=== PATIENT | male | born 1940 | race Caucasian/White ===

== ENCOUNTER 2025-02-25 13:29 | Outpatient (AMB) | payer MEDICARE, SELFPAY ==
--- OUTSIDE RECORDS SUMMARY | 2025-02-11 11:00 | XMS_ITS | Continuity of Care Document ---
Author Organization [facility] Address [address] [place] [address] Phone Care Team Providers Care Senior Research Analyst Name Role Phone Maynor MAY, JI, BRI, Michael Unavailable U navailable Procedures Procedure Date Duplex Scan-extrem Veins; Uni/ CT & [place] J Advance Directives Directive Yes / No Effective Date File Name No Information Encounters Encounter Description Practice Location Reason(s) For Visit Diagnoses Date Provider Providers Copied on Encounter [facility], [address], [place], [id number], [place] tel:[phone] CVR - [place] Pain in right leg 5 Maynor MAY, JI, BRI Rodriguez. [address], [place], [place], [id number] , [place]. tel:[phone] Referring Provider: Ely Kidd MD, [address], [place], [address]. tel:[phone] Family History Family Member Type Diagnosis Age At Onset No Information Payers Payer name Insurance type Covered alliance party ID Authoriza tion(s) Medicare HEATHER MONTES [id number] [facility] AARP Supplement CI [id number] 1 Social History Type Description Quantity Date [...]
--- NOTE | 2025-02-25 12:49 | MHC.OFFVISCO ---
Intake Intake Visit Reasons: Anticoagulation Metal Expediter Required: No Allergies No Known Allergies Allergy (Verified 02/25/25 13:32) Medication List - Last Reconciled 02/25/25 by Krissy Crum RN aspirin 81 mg PO DAILY atorvastatin (Lipitor) 40 mg PO DAILY ferrous sulfate 325 mg PO DAILY furosemide 40 mg PO DAILY losartan 25 mg PO DAILY metoprolol succinate ER (Toprol XL) 200 mg PO DAILY omeprazole 40 mg PO DAILY sennosides (Senokot) 8.6 mg PO DAILY spironolactone 12.5 mg PO DAILY tamsulosin 0.4 mg PO DAILY warfarin 5 mg PO DAILY Nursing Note INR: 2.4- in therapeutic range of 2-3 Medications and supplements reviewed- med list updated No changes in health, diet, medications, or supplements, Denies any signs and symptoms of bleeding or bruising or clotting. Bleeding, bruising, clotting discussed Nutritional guidance given Dose: pt states has been on 5mg x 6, with no warfarin on saturdays, has been on this dose for approx one year F/U INR: 2 weeks Patient verbalizes understanding of instructions given pt admitted to acs today, vinicio apple present for visambika gardiner is a nurse. med list provided and reviewed. educational material provided and reviewed to include s/s bleediing/clotting, compliance with testing, dietary management and importance of calling med changes to acs. pt states has 1mg warfarin tablets and just refilled. ? change in warfarin pill strength in the future. pt has been on warfarin for approx 15 years. 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 Illness/Depression: Yes (hx depression) Surgeries: adenoidectomy, defrib/st jens, forearm surg, inguinal hernia, shoulder surgery, thoracid spine surgery, tonisllectomy, thr right Anti-Coag. Education Record Teaching Recipient: Family (vinicio apple is a nurse) and Patient What is the easiest way to learn: Reading, Listening, Demonstration and Education Packet Significant other who can be involved in Teaching Process when Indicated: ambika- Metal Expediter Required: No Readiness To Learn: Good Teaching Methods: Demonstration, Discussion and Handout Response to Teaching: Reinforcement Needed Re-Education needs: Reinforce Content Education Intervention/Brief Description of Teaching 1. Able to state reason for taking Warfarin: Yes 2. Able to state Pain Management techniques: Yes 3. Able to state action of Warfarin.: Yes Able to state current dose, pill color, how and when Warfarin to be taken: Yes Able to identify signs of bleeding &/or clotting: Yes 4. Able to identify need to keep diet consistent in regard to vitamin K intake: Yes Able to state restriction on alcohol: Yes 5. Able to state need for compliance with PT/INR testing: Yes Describes rationale for carrying ID and wearing Medic Alert bracelet: Yes Patient instructed to monitor for excess bruising or signs/symptoms of clotting or bleeding: Yes 6. Able to state that there are drugs that interact with Warfin: Yes 7. Able to state the need to seek medical attention when illness/injury occur.: Yes Describes the need to avoid activities with high risk of injury: Yes 8. Able to state duration of treatment: Yes 9. Demonstrates understanding of notifying all providers of pending dental surgical, or other invasive procedures: Yes 10. Able to state Home Care instructions Questionnaires HAS-BLED Does the patient had uncontrolled Hypertension?: Yes Does the patient have renal disease?: Yes Does the patient have liver disease?: No Does the patient have a history of stroke?: No Has the patient had major bleeding or predisposition to bleeding?: Yes (stomach, ? diverticulitis) Does the patient have labile INRs?: Yes Is the patient over 65 years of age?: Yes Is the patient on medications that gives them a predisposition to bleeding?: Yes Does the patient use alcohol?: No HAS-BLED Score: 6 CHADSVASC Age: 75 or over Gender: Male Does the patient have a history of CHF?: Yes Does the patient have a history of Hypertension?: Yes Does the patient have a history of Stroke/TIA/Thromboembolism?: No Does the patient have a history of Vascular Disease (prior OR, PAD or aortic plaque)?: Yes Does the patient have a history of Diabetes?: No CHADS VACS Score: 5 Yuko Prediction Score Rsk VTE Active Cancer: No Previous VTE, excluding superficial vein thrombosis: No Reduced mobility: Yes Already known Thrombophilic Condition: No With-in last month Trauma and/or Surgery: No Elderly 70 year or older: Yes Heart and/or Respiratory Failure: Yes Acute Myocardial infarction and/or Ischemic Stroke: No Acute Infection and/or Rheumatologic Disorder: No Obesity (BMI 30 or greater): Yes Ongoing Hormonal Treatment: No Score: 6 Yuko Score less than 4; Low Risk of VTE Yuko Score 4 or greater; High Risk of VTE Coding Level of Care Code New Patient Level 2 Diagnoses Current use of anticoagulant therapy Z79.01 Results AMB INR Fingerstick AMB INR Fingerstick 2.4 Last Edit by Krissy Crum RN on 02/25/25 14:22 interface delay Assessment & Plan Assessment & Plan (1) Current use of anticoagulant therapy: Code(s): Z79.01 - salvage determiner (current) use of anticoagulants Category: Medical Medications: New polyethylene glycol 3350 (Miralax) 17 grams PO DAILY PRN furosemide 60 mg PO QAM furosemide 40 mg PO QPM acetaminophen 1,000 mg PO .q8 hours PRN
[2025-02-25 14:16] LABS: Prothrombin Time Whole Bld POC 28.5 sec (11.1-13.5); ~PT, ~INR - Anti Coag Clinic 2.4 (0.9-1.1)
--- OUTSIDE RECORDS SUMMARY | 2025-02-25 14:18 | XMS_ITS | Encounter Summary ---
Author Organization [facility] Address [address] [place] [address] Care Team Providers Care Painter Supervisor Name Role Phone Luisito Davenport MD Primary Care Provider [phone] Encounter Details Date Type Department Care Team (Late st Contact Info) Description 02/04/2025 Telephone [facility] [address] [facility] [address] [place] [id number] Mesha Lima, PERRI [address] [place] [address] Social History Tobacco Use Types Packs/Day Years Used Date Smoking Tobacco: Never Smokeless Tobacco: Never Alcohol Use Standard Drinks/Week Comments Not Currently 0 (1 standard drink = 0.6 oz pur e alcohol) Sex and Gender Information Value Date Recorded Sex Assigned at Not on file Legal Sex Male 3:28 AM EST Gender Identity Not on file Sexual Orientation Not on file documented as of this encounter Progress Notes * Mildred Stephen - 02/24/2025 9:00 AM EDT 02/23/25 I did receive the JOHN from the [facility] Office signed by Dr. HARRISON. Patient will see . There is arecall for 6 mos in the system. * Mildred Stephen - 02/04/2025 1:09 PM EDT 02/04/25 Pt saw today and is requesting to switch care to Dr. Macdonald from Dr. Kraft. Transfer of Care form will be sent to the [facility] office today to have Dr. Kraft sign. documented in this encounter Plan of Treatment Upcoming Encounters Date Type Department Care Team (Late st Contact Info) Description 02/26/2025 8:30 AM EDT Ancillary Procedure [facility] [address] [facility] [address] [place] [address] 05/06/2025 11:20 AM EDT Office Visit [facility] [address] [facility] [address] [place] [address] Mesha Lima NP [address] [place] [address] documented as of this encounter Visit Diagnoses Not on filedocumented in this encounter Care Teams Painter Supervisor Relationship Specialty Start Date End Date Luisito Davenport MD [address] [place] [address] PCP - General Internal Medicine 05/29/12 documented as of this encounter
== END 2025-02-25 14:50 | disposition home or self-care (01) ==
LOC: HO.ACS 13:29
PROVIDERS: PCP Internal Medicine; Visit Provider Internal Medicine Medical Oncology
DX: Z79.01 Long term (current) use of anticoagulants (principal)

== ENCOUNTER → 2025-02-25 13:29 | Outpatient (BNVA) | payer MEDICARE, SELFPAY | PROVIDERS: PCP Internal Medicine; Visit Provider Internal Medicine Medical Oncology | DX: I48.91 Unspecified atrial fibrillation (principal); Z79.01 Long term (current) use of anticoagulants; Z51.81 Encounter for therapeutic drug level monitoring | CPT/HCPCS: 85610; 99202 ==

== ENCOUNTER 2025-03-11 08:20 | Outpatient (AMB) | payer MEDICARE, SELFPAY ==
--- OUTSIDE RECORDS SUMMARY | 2025-02-11 11:00 | XMS_ITS | Continuity of Care Document ---
Author Organization [facility] Address [address] [place] [address] Phone Care Team Providers Care Department Coordinator Name Role Phone Maynor MAY, JI, BRI, Michael Unavailable U navailable Procedures Procedure Date Duplex Scan-extrem Veins; Uni/ CT & [place] J Advance Directives Directive Yes / No Effective Date File Name No Information Encounters Encounter Description Practice Location Reason(s) For Visit Diagnoses Date Provider Providers Copied on Encounter [facility], [address], [place], [id number], [place] tel:[phone] CVR - [place] Pain in right leg 5 Maynor MAY, JI, BRI Rodriguez. [address], [address], [place], [place], [id number] , [place]. tel:[phone] Referring Provider: Ely Kidd MD, [address], [place], [address]. tel:[phone] Family History Family Member Type Diagnosis Age At Onset No Information Payers Payer name Insurance type Covered alliance party ID Authoriza tion(s) Medicare HEATHER MONTES [id number] [facility] AARP Supplement [place] [id number] 1 Social History Type Description Quantity Date [...]
--- OUTSIDE RECORDS SUMMARY | 2025-03-11 08:31 | XMS_ITS | Encounter Summary ---
Author Organization [facility] Address [address] [place] [address] Care Team Providers Care Glass Etcher Helper Name Role Phone Luisito Davenport MD Primary Care Provider [phone] Encounter Details Date Type Department Care Team (Late st Contact Info) Description 02/04/2025 Telephone [facility] [address] [facility] [address] [place] [id number] Mesha Lima, PERRI [address] [place] [address] Social History Tobacco Use Types Packs/Day Years [...] Care form will be sent to the [facility] office today to have Dr. Kraft sign. documented in this encounter Plan of Treatment Upcoming Encounters Date Type Department Care Team (Late st Contact Info) Description 04/30/2025 8:00 AM EDT Ancillary Procedure [facility] - [facility] [address] [address] [place] [address] 05/06/2025 11:20 AM EDT [facility] [address] [facility] [address] [place] [address] Mesha Lima NP [address] [place] [address] documented as of this encounter Visit Diagnoses Not on filedocumented in this encounter Care Teams Glass Etcher Helper Relationship Specialty Start Date End Date Luisito Davenport MD [address] [place] [address] PCP - General Internal Medicine 05/29/12 documented as of this encounter
[2025-03-11 08:52] LABS: Prothrombin Time Whole Bld POC 36.1 sec (11.1-13.5); ~PT, ~INR - Anti Coag Clinic 3.0 (0.9-1.1)
--- NOTE | 2025-03-11 08:58 | MHC.OFFVISCO ---
Intake Intake Visit Reasons: Anticoagulation Allergies No Known Allergies Allergy (Verified 02/25/25 13:32) Nursing Note NO CP,SOB,DIET/MED CHANGES,FALLS OR SX OF BLEEDING. CONTINUE PRESENT DOSE AND FOLLOW-UP IN 3 WEEKS GOOD UNDERSTANDING OF DOSING INSTR. Anti-Coag Initial Assessment Social Hx Patient Tobacco Use Status: Former Tobacco user Tobacco use type: Cigarette and Cigar Alcohol intake frequency: does not drink Cardiovascular Hx: HTN, CHF, Arrhythmias (afib, ), Cardiomyopathy and Other (ashd, aneurysm- thoracic, hld, LBBB) Musculoskeletal Hx: Arthritis (knees, thr right) and Other (sciatica) Blood Disorder Hx: Anemia and Hyperlipidemia GI Hx: Diverticulosis and Other (gerd, colon polyps, pancreatic mass) Hx: Kidney Disease (ckd 3, ) and Prostate (prostatitis) Neurological Hx: Aneurysm (thoracic) Cancer HX: No Psych. Illness/Depression: Yes (hx depression) Coding Level of Care Code Est Patient Level 1 Diagnoses Current use of anticoagulant therapy Z79.01 Assessment & Plan Assessment & Plan (1) Current use of anticoagulant therapy: Code(s): Z79.01 - penitentiary (current) use of anticoagulants Category: Medical
== END 2025-03-11 09:02 | disposition home or self-care (01) ==
LOC: HO.ACS 08:20
PROVIDERS: PCP Internal Medicine; Visit Provider Internal Medicine Medical Oncology
DX: Z79.01 Long term (current) use of anticoagulants (principal)

== ENCOUNTER → 2025-03-11 08:20 | Outpatient (BNVA) | payer MEDICARE, SELFPAY | PROVIDERS: PCP Internal Medicine; Visit Provider Internal Medicine Medical Oncology | DX: I48.91 Unspecified atrial fibrillation (principal); Z79.01 Long term (current) use of anticoagulants; Z51.81 Encounter for therapeutic drug level monitoring | CPT/HCPCS: 85610; 99211 ==

== ENCOUNTER 2025-04-01 08:15 | Outpatient (AMB) | payer MEDICARE, SELFPAY ==
--- OUTSIDE RECORDS SUMMARY | 2025-04-01 08:19 | XMS_ITS | Clinical Summary ---
Author Organization [address] [place] [address] Address [address] [place] [address] Phone Care Team Providers Care Equipment Cleaner Name Role Phone Luisito Davenport MD Primary Care Provider [phone] Allergies No known active allergies Medications aspirin 81 mg EC tablet Take 81 mg by mouth daily. Active metoprolol succinate (TOPROL-XL) 200 mg 24 hr tablet TAKE 1 TABLET EVERY DAY 4 Active omeprazole (PriLOSEC) [address] capsule Take 1 Capsule by mouth daily. Active tamsulosin (FLOMAX) 0.4 mg 24 hr capsule Take 0.4 mg by mouth daily. Take 30 mins after same meal every day. Active warfarin (COUMADIN) 1 mg tablet Managed by Dr Davenport. Active spironolactone (ALDACTONE) 25 mg tablet TAKE 1/2 TABLET EVERY DAY 45 tablet 3 5 Active furosemide (LASIX) 40 mg tablet TAKE 2 TABLETS EVERY MORNING AND TAKE 1 TABLET IN AFTERNOON 270 tablet 3 5 Active Additional Information Patient not taking.Informant: Self, Reported on 02/04/2025 losartan (COZAAR) 50 mg tablet Take 0.5 tablets (25 mg total) by mouth 1 (one) time each day. 90 tablet 1 5 Active furosemide (LASIX) 40 mg tablet Take by mouth. Take 3 tablets in the morning, take 2 tablets in the evening Active docusate sodium (COLACE) 100 mg capsule Take 1 capsule (100 mg total) by mouth 1 (one) time each day. Active ferrous sulfate 325 mg (65 mg iron) EC tablet Take 1 tablet (325 mg total) by mouth 3 (three) times a day with meals. Do not crush, chew, or split. Active ferrous sulfate 325 mg (65 mg elemental iron) tablet Take 1 tablet (325 mg total) by mouth 1 (one) time each day. Active senna (SENOKOT) 8.6 mg tablet Take 1 tablet (8.6 mg total) by mouth if needed for constipation. Active polyethylene glycol (MIRALAX) 17 gram packet Take 17 g by mouth if needed for constipation. Active atorvastatin (LIPITOR) 40 mg tablet TAKE 1 TABLET EVERY DAY 90 tablet 3 5 Active Farxiga 10 mg tablet Take 1 tablet (10 mg total) by mouth 1 (one) time each day. 90 tablet 3 5 Active Active Problems Problem Noted Date Diagnosed Date Nonischemic cardiomyopathy ([facility] V24, [facility] V28) 01/09/2025 CAD (coronary artery disease) 11/08/2022 Overview (01/15/2025): - Mild nonobstructive CAD on cath 2007 -Nuclear stress test 08/2019 without evidence of ischemia or infarct, LVEF 50% Assessment & Plan (02/05/2025 7:23 AM EDT): The patient does not have anginal sounding discomfort. Continue his medical therapy with aspirin, beta-anderson, ARB and statin. Assessment & Plan (01/15/2025 12:04 PM EDT): The patient has no anginal sounding discomfort. Continue medical therapy with aspirin, beta-anderson, statin. Follow his GI bleeding with ongoing antiplatelet use HLD (hyperlipidemia) 11/08/2022 Assessment & Plan (02/05/2025 7:26 AM EDT): Well-controlled lipid profile on current dose statin. Continue Atrial fibrillation ([facility] V24, [facility] V28) 1 Overview (01/15/2025): - Unsuccessful cardioversion -Anticoagulated with warfarin -Heart rate supported by BiV pacemaker Assessment & Plan (02/05/2025 7:22 AM EDT): The patient's heart rate remains supported by his biventricular device. He remains anticoagulated with warfarin per protocol. He has not had any bleeding issues. Continue his beta-anderson and anticoagulation. Continue in office and remote surveillance of his device as per protocol. Assessment & Plan (01/15/2025 12:04 PM EDT): The patient's heart rate is well-controlled on his current dose beta-anderson and supported by his BiV pacemaker. He does not have any tachycardia noted on his remote device interrogations. He does have GI bleeding and a recently diagnosed stage II GI carcinoma. His anemia will need to be closely followed. Consideration can be given by the patient's primary team for Watchman evaluation. Aortic aneurysm, thoracic ([facility] V24) 09/13/19 Overview (01/15/2025): Followed by Dr. Chavez Assessment & Plan (02/05/2025 7:22 AM EDT): Continue periodic surveillance as per cardiac surgery. However, this may never be a problem in his lifetime. 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) ([facility] V24, [facility] V28) 09/13/2020 Overview (01/15/2025): - Recovered LVEF status post [employer]LE [employer]SULTANT-D -Most recent echocardiogram 12/2022 showing normal LV size, moderate concentric LVH, basal inferior and basal inferior castillo hypokinetic, ICD wire in the RA, LVEF 45-50% visually, 48% using modified Cannon equation, indeterminant diastolic function, normal RV size, root global RV systolic function, moderate AI, mild TR, mild pulmonary hypertension, dilation of the aortic root at sinus of Valsalva 4.6 centimeters, ascending aorta 4.8 cm, transverse aorta 3.5 cm - Historically, SGLT2 has been cost prohibitive Assessment & Plan (02/05/2025 7:26 AM EDT): The patient's lower extremity edema has dramatically improved with intensification of his diuretic therapy, and he has lost 10 pounds! The patient and his daughter are quite pleased. He feels much better. His anemia is stable, and his renal function improved with diuresis suggesting cardiorenal syndrome. 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 His daughter investigated the cost of both Jardiance and Farxiga. He appears as though Farxiga is preferential through his insurance. As such, will prescribe Farxiga 10 mg daily. I did ask his daughter to confirm the zambrano as it does look high on my end as I tried to write the prescription. If SGLT2's are cost prohibitive, he will just remain on his higher dose diuretic as it seems to be working well for him. 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 Assessment & Plan (01/15/2025 12:09 PM EDT): The patient has evidence of ongoing volume overload. He has lower extremity edema bilaterally, adventitious lung sounds, and weight gain. Interestingly, his edema is more notable following a mechanical fall. This does not make much logical sense to the patient or his daughter either. He does have dietary indiscretion of sodium. This is a more likely etiology for his current heart failure exacerbation. He is also more likely to retain volume in the setting of significant anemia due to the hemodynamic changes that occur with anemia. We will start with updating his blood work. Since the time of our office visit, it returns with H&H 8.7/29.6, and creatinine of 1.47 and a BNP of 253. Likely, the patient has a degree of cardiorenal syndrome. Will increase his diuretic again to 120 mg in the morning and 80 mg in the afternoon as was previously successful during a bolus by his PCP team. Will update his BMP in about a week's time. If his renal function is stable and he is feeling well, can continue higher dose diuretic. Alternatively, Jardiance is now generic and may be more affordable. This would need to be determined by the patient and his daughter in conjunction with the review of his insurance annual co-pays. 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 Hypertension 09/13/2020 Assessment & Plan (02/05/2025 7:26 AM EDT): Patient's blood pressure is somewhat soft but asymptomatic. Hopefully, we will be able to transition his loop diuretic to SGLT2 as above. But for now, continue his current treatment plan Assessment & Plan (01/15/2025 12:09 PM EDT): Blood pressure robust in office today. Follow with diuresis. Continue otherwise his ARB, beta-anderson and MRA. As above, consideration can be given for SGLT2 if it is not cost prohibitive any longer. Pancreatic lesion 09/27/2012 Encounters Date Type Department Care Team Description 03/13/2025 1:20 PM EDT Ancillary Procedure [facility] [address] [place] [address] 02/04/2025 11:00 AM EDT Office Visit [facility] [address] [place] [address] Mesha Lima NP Chronic heart failure with preserved ejection fraction (HFpEF) (CMS/HCC V24, CMS/HCC V28) (Primary Dx); Aneurysm of ascending aorta without rupture (CMS/HCC V24); Longstanding persistent atrial fibrillation (CMS/HCC V24, CMS/HCC V28); Coronary artery disease involving coyote valley coronary artery of coyote valley heart without angina pectoris; Primary hypertension; Pure hypercholesterolemia 02/04/2025 Telephone [facility] [address] [place] [address] Mesha Lima NP Authorization; Medication 02/04/2025 Telephone [facility] [address] [place] [address] Mesha Lima NP 02/03/2025 12:30 PM EDT Ancillary Procedure [facility] [address] [place] [address] 01/27/2025 Telephone [facility] [address] [place] [address] Mesha Lima NP Lab Results 01/14/2025 11:20 AM EDT Office Visit [facility] [address] [place] [address] Mesha Lima NP Atrial fibrillation, unspecified type (CMS/HCC V24, CMS/HCC V28) (Primary Dx); Nonischemic cardiomyopathy (CMS/HCC V24, CMS/HCC V28); Aneurysm of ascending aorta without rupture (CMS/HCC V24); Coronary artery disease involving coyote valley coronary artery of coyote valley heart without angina pectoris; Chronic heart failure with preserved ejection fraction (HFpEF) (CMS/HCC V24, CMS/HCC V28); Primary hypertension; Pure hypercholesterolemia 01/09/2025 Telephone [facility] [address] [place] [address] Mar Stephen MA 01/09/[address] [place] [id number] Gary Le MD Leg Swelling 12/30/2024 2:30 PM EDT Ancillary Procedure [facility] [address] [place] [address] from Last 3 Months Surgical History Surgery Date Site/Laterality Comments COLONOSCOPY 04/05/2022 PROCEDURE: HISTORICAL COLONOSCOPY; COMMENT: 06/20/17 OTHER SURGICAL HISTORY PROCEDURE: HISTORY OTHER; COMMENT: STOMACH-INTESTINE SCOPE OTHER SURGICAL HISTORY 11/07/2012 PROCEDURE: HISTORY OTHER; COMMENT: ULTRASOUND GUIDED BIOPSY OTHER SURGICAL HISTORY PROCEDURE: HISTORY OTHER; COMMENT: Cardiac defibrillator OTHER SURGICAL HISTORY PROCEDURE: HISTORY OTHER; COMMENT: compartment syndrome Medical History Medical History Date Comments Arthritis DX:Arthritis Hemorrhoids DX:Hemorrhoids Class 2 obesity DX:Class 2 obesi ty Abdominal pain 08/18/2022 DX:Abdominal silvana n BPH (benign prostatic hyperplasia) DX:BPH (benign prostatic hyperplasia) CKD (chronic kidney disease) DX: CKD (chronic kidney disease) Pancreatic cyst DX:Pancreatic cy st Edema BLE Hypertension Chronic anemia Acute kidney injury (CMS/HCC V24) Family History Medical History Relation Name Comments Heart attack Brother HTN Mother Stroke Mother Relation Name Status Comments Brother Mother Social History Tobacco Use Types Packs/Day Years Used Date Smoking Tobacco: Never Smokeless Tobacco: Never Tobacco Cessation:Counseling Given: Not Answered Alcohol Use Standard Drinks/Week Comments Not Currently 0 (1 standard drink = 0.6 oz pur e alcohol) Sex and Gender Information Value Date Recorded Sex Assigned at Not on file Legal Sex Male 3:28 AM EST Gender Identity Not on file Sexual Orientation Not on file Obstetrics History Last Filed Vital Signs Vital Sign Reading Time Taken Comments Blood Pressure 100/56 02/04/2025 10:49 AM EDT Pulse 67 02/04/2025 10:49 AM EDT Temperature - - Respiratory Rate - - Oxygen Saturation 97% 02/04/2025 10:49 AM EDT Inhaled Oxygen Concentration - - Weight 98 kg (216 lb) 02/04/2025 10:49 AM EDT Height 175.3 cm (5' 9 ) 02/04/2025 10:49 AM EDT Body Mass Index 31.9 02/04/2025 10:49 AM EDT Plan of Treatment Upcoming Encounters Date Type Department Care Team (Late st Contact Info) Description 04/27/2025 8:00 AM EDT Ancillary Procedure [facility] [address] [place] [address] 05/06/2025 11:20 AM EDT Office Visit [facility] [address] [place] [address] Mesha Lima NP [address] [place] [address] Health Maintenance Due Date Last Done Comments Zoster Vaccines (1 of 2) 1959 RSV Immunization Adult Patients (1 - 1-dose 75+ series) 2014 Cholesterol Screening (Lipid Panel) 07/29/2022 Falls Risk Assessment 07/29/2022 Medicare Annual Wellness Visit 07/29/2022 Social Influencers of Health Screening 07/29/2022 COVID-19 Vaccine (4 - 2023-2 5 season) 2024 11/10/2021, 12/22/2020, 11/24/2020 Depression Screening 08/20/2024 Influenza Vaccine (#1) 2025 Hypertension/CHF/CAD Annual BMP Blood Test 01/23/2026 01/23/2025, 01/14/2025, 08/22/2024 DTaP,Tdap,and Td Vaccines (2 - Td or Tdap) 04/17/2029 04/17/2019 Pneumococcal Vaccine: 50+ Years Completed 07/03/2018, 11/08/2015, 01/17/2012 HIB Vaccines Aged Out No longer eligi ble based on patient's age to complete this topic HPV Vaccines Aged Out No longer eligi ble based on patient's age to complete this topic Hepatitis A Vaccines Aged Out No long er eligible based on patient's age to complete this topic Hepatitis B Vaccines Aged Out No long er eligible based on patient's age to complete this topic IPV Vaccines Aged Out No longer eligi ble based on patient's age to complete this topic MMR Vaccines Aged Out No longer eligi ble based on patient's age to complete this topic Meningococcal ACWY Vaccine Aged Out N o longer eligible based on patient's age to complete this topic Meningococcal B Vaccine Aged Out No l onger eligible based on patient's age to complete this topic RSV Immunization Patients Under 20 months Aged Out No longer eligible b ased on patient's age to complete this topic Varicella Vaccines Aged Out No longer eligible based on patient's age to complete this topic Medical Devices Implanted Type Area Element Winding Machine Tender Device Identifier Shelf Expiration Date Model / Serial / Lot [id number] Quench AssMonogram(Tm) [id number] Implanted:11/19 (Quantity not on file) Cardiac ORACLE WMS CONSULTANT-D ICD RANGEL [employer]- [employer] [id number] [employer] ASSPocket Gems(TM) / [id number] / Procedures Procedure Name Priority Date/Time Associated Diagnosis Comments CARDIAC DEVICE CHECK- REMOTE- MURJ Routine 03/13/2025 1:19 PM EDT CARDIAC DEVICE CHECK- REMOTE- MURJ Routine 02/03/2025 12:26 PM EDT BASIC METABOLIC PANEL Routine 01/23/2025 7:16 AM EDT Chronic heart failure with preserved ejection fraction (HFpEF) (CMS/HCC V24, CMS/HCC V28) ECG 12-LEAD Routine 01/15/2025 12:11 PM EDT Atrial fibrillation, unspecified type (CMS/HCC V24, CMS/HCC V28) B-TYPE NATRIURETIC PEPTIDE Routine 01/14/2025 12:57 PM EDT Nonischemic cardiomyopathy (CMS/HCC V24, CMS/HCC V28) COMPLETE BLOOD COUNT Routine 01/14/2025 12:57 PM EDT Nonischemic cardiomyopathy (CMS/HCC V24, CMS/HCC V28) BASIC METABOLIC PANEL Routine 01/14/2025 12:57 PM EDT Nonischemic cardiomyopathy (CMS/HCC V24, CMS/HCC V28) CARDIAC DEVICE CHECK- REMOTE- MURJ Routine 12/30/2024 2:25 PM EDT from Last 3 Months Results * Cardiac device check - Remote- MURJ (03/13/2025 1:19 PM EDT) Only the most recent of3 resultswithin the time period is included. Date Time Interrogation Session [id number] CV DEVICE CHECK Type Interrogation Session Remote Scheduled CV DEVICE CHECK Implantable Pulse Generator Element Winding Machine Tender [employer] CV DEVICE CHECK Implantable Pulse Generator Type ORACLE WMS CONSULTANT-D CV DEVICE CHECK Implantable Pulse Generator Model [id number] [employer]() CV DEVICE CHECK Implantable Pulse Generator Serial Number [id number] CV DEVICE CHECK Implantable Pulse Generator Implant Date 20221215 CV DEVICE CHECK Battery Remaining Percentage 61.00 CV DEVICE CHECK Battery Remaining Longevity 48.0 CV DEVICE CHECK Battery Voltage 2.960 CV D EVICE CHECK Battery RESIDENTIAL PROPERTY TAX APPRAISER Trigger 2.590 CV DEVICE CHECK Battery Status Middle of Service CV DEVICE CHECK Capacitor Charge Time 8.300 CV DEVICE CHECK ORACLE WMS CONSULTANT Statistic ORACLE WMS CONSULTANT Percent Paced 99.00 CV DEVICE CHECK Atrial Tachy Statistic AT/AF Dawson Percent 1.00 CV DEVICE CHECK Lead Channel Sensing Intrinsic Amplitude 0.600 CV DEVICE CHECK Lead Channel Setting Sensing Sensitivity 0.30 CV DEVICE CHECK Lead Channel Impedance Value 350 CV DEVICE CHECK Lead Channel Sensing Intrinsic Amplitude 11.800 CV DEVICE CHECK Lead Channel Setting Sensing Sensitivity 0.50 CV DEVICE CHECK Lead Channel Impedance Value 380 CV DEVICE CHECK Lead Channel Pacing Threshold Amplitude 0.875 CV DEVICE CHECK Lead Channel Pacing Threshold Pulse Width 0.5 CV DEVICE CHECK Lead Channel RV Pacing Threshold Date 2025-02-27 CV DEVICE CHECK Lead Channel Setting Pacing Amplitude 2.000 CV DEVICE CHECK Lead Channel Setting Pacing Pulse Width 0.5 CV DEVICE CHECK Lead Channel Impedance Value 340 CV DEVICE CHECK Lead Channel Setting Pacing Amplitude 1.750 CV DEVICE CHECK Lead Channel Setting Pacing Pulse Width 1.0 CV DEVICE CHECK Bryce Setting Mode (NBG Code) VVIR CV DEVICE CHECK Ventricular chambers paced during ORACLE WMS CONSULTANT pacing. BiV CV DEVICE CHECK Bryce Setting Lower Rate Limit 70 CV DEVICE CHECK Bryce Setting AT Mode Switch Rate 180 CV DEVICE CHECK Bryce Setting Maximum Sensor Rate 110 CV DEVICE CHECK ORACLE WMS CONSULTANT LV-RV Delay 45 CV D EVICE CHECK Therapy Statistic Recent Shocks Delivered 0 CV DEVICE CHECK Therapy Statistic Recent Shocks Aborted 0 CV DEVICE CHECK Therapy Statistic Recent ATP Delivered 0 CV DEVICE CHECK Shock Measured Impedance 44 CV DEVICE CHECK Zone Setting Type Category VT CV DEVICE CHECK Rate 160 CV DEVICE CHECK Zone Setting Status On CV DEVICE CHECK Zone ID 1 CV DEVICE CHECK Zone Setting Type Category VT CV DEVICE CHECK Zone Setting Status Inactive CV DEVICE CHECK Zone ID 2 CV DEVICE CHECK Zone Setting Type Category VF CV DEVICE CHECK Rate 200 CV DEVICE CHECK Therapies 36.0J,40.0J,40.0J x 4 CV DEVICE CHECK Zone Setting Status On CV DEVICE CHECK Zone ID 3 CV DEVICE CHECK Date of Service 2025-04-28 CV DEVICE CHECK Anatomical Region Laterality Modality Device Interroga tion 02/27/2025 2:00 AM EDT Impressions 03/13/2025 1:04 PM EDT Heart Failure Diagnostic: Stable * Heart failure diagnostics assessed through the device * Status: Stable * No overt HF present Narrative Procedure Note Jair Craig MD - 03/13/2025 IMPRESSION: Heart Failure Diagnostic: Stable * Heart failure diagnostics assessed through the device * Status: Stable * No overt HF present us Jair Craig MD CV IMPLANTABLE CARDIAC DEVICE PROCEDURES Final Result * (ABNORMAL) Basic metabolic panel (01/23/2025 7:16 AM EDT) Only the most recent of2 resultswithin the time period is included. Pathologist [facility] Glucose 91 70 - 99 mg/dL [facility] Blood Urea Nitrogen (BUN) 25 8 - 27 mg/dL [facility] Creatinine 1.24 0.76 - 1.27 mg/dL [facility] 1 eGFR 57(L) >59 mL/min/1.7 3 [facility] 1 BUN/Creatinine Ratio 20 10 - 24 [facility] 1 Sodium 145(H) 134 - 144 mmol/L [facility] 1 Potassium 4.2 3.5 - 5.2 mmol/L [facility] 1 Chloride 102 96 - 106 mmol/L [facility] 1 Carbon Dioxide 26 20 - 29 mmol/L [facility] 1 Calcium 9.0 8.6 - 10.2 mg/dL [facility] 1 Blood Venous blood specimen / Unknown 01/23/2025 7:16 AM EDT 01/23/2025 Narrative [facility] 1 - 01/23/2025 11:06 PM EDT Performed at: 01 - [facility] [id number] Roller Inspector: Joyce Cohen MD, Phone: [phone] us Mesha Lima NP LAB BLOOD ORDERABLES Final Resu lt [facility] 1 * ECG 12 lead (01/15/2025 12:11 PM EDT) Pathologist [facility] Ventricular Rate ECG 70 BPM GEMUSE Atrial Rate 70 BPM GEMUSE QRS Duration 206 ms GEMUSE Q-T Interval 490 ms GEMUSE QTc 529 ms GEMUSE R [place] -52 degrees GEMUSE T [place] 50 degrees GEMUSE ECG Interpretation Ventricular-paced rhythm afib underlying, anticoagulated Confirmed by Venkat DONG YUFENG ([id number]) on 01/15/2025 2:31:50 PM GEMUSE 01/14/2025 11:5 5 AM EDT 01/15/2025 2:31 PM EDT Mesha Lima NP ECG ORDERABLES Edited Result - Final GEMUSE * (ABNORMAL) Complete blood count (01/14/2025 12:57 PM EDT) WBC 7.9 3.4 - 10.8 x10E3/uL [facility] RBC 3.19(L) 4.14 - 5.80 x10E6/uL [facility] 1 Hemoglobin 8.7(L) 13.0 - 17.7 g/dL [facility] 1 Hematocrit 29.6(L) 37.5 - 51.0 % [facility] 1 MCV 93 79 - 97 fL [facility] 1 MCH 27.3 26.6 - 33.0 pg [facility] 1 MCHC 29.4(L) 31.5 - 35.7 g/dL [facility] 1 RDW 15.9(H) 11.6 - 15.4 % [facility] 1 Platelets 371 150 - 450 x10E3/uL [facility] 1 Blood Venous blood specimen / Unknown 01/14/2025 12:57 PM EDT 01/14/2025 Narrative [facility] 1 - 01/14/2025 10:06 PM EDT Performed at: 01 - [facility] [address] [id number] Roller Inspector: Joyce Cohen MD, Phone: [phone] Mesha Lima NP LAB BLOOD ORDERABLES Final Resu lt [facility] * (ABNORMAL) B-type natriuretic peptide (01/14/2025 12:57 PM EDT) B-Type Natriuretic Peptide 253.6(H) 0.0 - 100.0 pg/mL [facility] Comment:[employer] ADVIA [facility] [employer] methodology Blood Venous blood specimen / Unknown 01/14/2025 12:57 PM EDT 01/14/2025 Narrative [facility] 1 - 01/15/2025 8:07 AM EDT Performed at: 01 - [facility] [address] [id number] Roller Inspector: Joyce Cohen MD, Phone: [phone] us Mesha Clarence RAYO LAB BLOOD ORDERABLES Final Resu lt [facility] 1 from Last 3 Months Insurance MEDICARE [facility] Advance Directives Documents on File Type Date Recorded 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
[2025-04-01 08:41] LABS: Prothrombin Time Whole Bld POC 44.0 sec (11.1-13.5); ~PT, ~INR - Anti Coag Clinic 3.7 (0.9-1.1)
--- NOTE | 2025-04-01 08:52 | MHC.OFFVISCO ---
Intake Intake Visit Reasons: Anticoagulation Allergies No Known Allergies Allergy (Verified 04/01/25 08:36) Medication List - Last Reconciled 04/01/25 by Jess Chavarria RN acetaminophen 1,000 mg PO .q8 hours PRN aspirin 81 mg PO DAILY atorvastatin (Lipitor) 40 mg PO DAILY ferrous sulfate 325 mg PO DAILY furosemide 60 mg PO QAM furosemide 40 mg PO QPM losartan 25 mg PO DAILY metoprolol succinate ER (Toprol XL) 200 mg PO DAILY omeprazole 40 mg PO DAILY polyethylene glycol 3350 (Miralax) 17 grams PO DAILY PRN sennosides (Senokot) 8.6 mg PO DAILY spironolactone 12.5 mg PO DAILY tamsulosin 0.4 mg PO DAILY warfarin 5 mg See Protocol PO DAILY Nursing Note PT. HAS HAD FEWER GREENS,AND HAS NOT TAKING ENOUGH PO FLUIDS. HOLD WARFARIN TODAY THEN RESUME USUAL DOSING AND FOLLOW-UP IN 3 WEEKS. GOOD UNDERSTANDING OF DOSING INSTR. Anti-Coag Initial Assessment Social Hx Patient Tobacco Use Status: Former Tobacco user Tobacco use type: Cigarette and Cigar Alcohol intake frequency: does not drink Cardiovascular Hx: HTN, CHF, Arrhythmias (afib, ), Cardiomyopathy and Other (ashd, aneurysm- thoracic, hld, LBBB) Musculoskeletal Hx: Arthritis (knees, thr right) and Other (sciatica) Blood Disorder Hx: Anemia and Hyperlipidemia GI Hx: Diverticulosis and Other (gerd, colon polyps, pancreatic mass) Hx: Kidney Disease (ckd 3, ) and Prostate (prostatitis) Neurological Hx: Aneurysm (thoracic) Cancer HX: No Psych. Illness/Depression: Yes (hx depression) Coding Level of Care Code Est Patient Level 1 Diagnoses Current use of anticoagulant therapy Z79.01 Assessment & Plan Assessment & Plan (1) Current use of anticoagulant therapy: Code(s): Z79.01 - superintendent container terminal (current) use of anticoagulants Category: Medical
== END 2025-04-01 08:55 | disposition home or self-care (01) ==
LOC: HO.ACS 08:15
PROVIDERS: PCP Internal Medicine; Visit Provider Internal Medicine Medical Oncology
DX: Z79.01 Long term (current) use of anticoagulants (principal)

== ENCOUNTER → 2025-04-01 08:15 | Outpatient (BNVA) | payer MEDICARE, SELFPAY | PROVIDERS: PCP Internal Medicine; Visit Provider Internal Medicine Medical Oncology | DX: Z51.81 Encounter for therapeutic drug level monitoring (principal); Z79.01 Long term (current) use of anticoagulants | CPT/HCPCS: 85610; 99211 ==

== ENCOUNTER 2025-04-22 08:02 | Outpatient (REF) | payer MEDICARE, SELFPAY ==
[2025-04-22 09:01] LABS: Hematocrit 29.7 % (42.0-52.0); Hemoglobin 9.2 g/dl (14.0-18.0); Mean Corpuscular HGB Conc 31.0 g/dl (31.0-36.0); Mean Corpuscular Hemoglobin 28.3 pg (27.0-33.0); Mean Corpuscular Volume 91.4 fL (80.0-98.0); NRBC Abs Auto 0.000 X10*3/uL (0.0-0.012); NRBC Pct Auto 0.0 /100WBC (0.0-0.2); Platelet Count 265 X10*3/uL (160-400); Red Blood Count 3.25 X10*6/uL (4.60-5.80); White Blood Count 6.7 X10*3/uL (4.8-10.8)
[2025-04-22 09:13] LABS: Prothrombin Time 65.1 SEC (10.9-12.4)
[2025-04-22 09:15] LABS: INTERNATIONAL NORM RATIO 5.7 (0.9-1.1)
== END 2025-04-22 08:03 | disposition home or self-care (01) ==
LOC: HO.LAB 08:02
PROVIDERS: PCP Internal Medicine; Visit Provider Internal Medicine Medical Oncology
DX: Z51.81 Encounter for therapeutic drug level monitoring (principal); Z79.01 Long term (current) use of anticoagulants
CPT/HCPCS: 36415; 85027; 85610; 99211; 99212

== ENCOUNTER 2025-04-22 08:02 | Outpatient (AMB) | payer MEDICARE, SELFPAY ==
--- OUTSIDE RECORDS SUMMARY | 2025-02-11 11:00 | XMS_ITS | Continuity of Care Document ---
Author Organization [facility] Address [address] [place] [address] Phone Care Team Providers Care Operating Engineer Apprentice Name Role Phone Maynor MAY, JI, BRI, Michael Unavailable U navailable Procedures Procedure Date Duplex Scan-extrem Veins; Uni/ CT & [place] J Advance Directives Directive Yes / No Effective Date File Name No Information Encounters Encounter Description Practice Location Reason(s) For Visit Diagnoses Date Provider Providers Copied on Encounter [facility], [address], [place], [id number], [place] tel:[phone] CVR - [place] - [place] Pain in right leg 5 Maynor MAY, JI, BRI Rodriguez. [address], [address], [place], [place], [id number] , [place]. tel:[phone] Referring Provider: Ely Kidd MD, [address], [place], [address]. tel:[phone] Family History Family Member Type Diagnosis Age At Onset No Information Payers Payer name Insurance type Covered green party ID Authoriza tion(s) Medicare HEATHER MONTES [id number] [facility] AARP Supplement [place] [id number] 1 Social History Type Description Quantity Date [...]
--- OUTSIDE RECORDS SUMMARY | 2025-04-22 08:15 | XMS_ITS | Clinical Summary ---
Author Organization [address] [place] [address] Address [address] [place] [address] Phone Care Team Providers Care Manager Installation Name Role Phone Luisito Davenport MD Primary Care Provider [phone] [phone] Allergies No known active allergies Medications aspirin [...] Problem Noted Date Diagnosed Date Nonischemic cardiomyopathy ([facility] V24, [facility] V28) 01/09/2025 CAD (coronary artery disease) 11/08/2022 [...] on current dose statin. Continue Atrial fibrillation ([facility] V24, [facility] V28) 1 Overview (01/15/2025): - Unsuccessful cardioversion [...] team for Watchman evaluation. Aortic aneurysm, thoracic ([facility] V24) 09/13/19 Overview (01/15/2025): Followed by Dr. Chavez Assessment & Plan (02/05/2025 7:22 AM EDT): Continue periodic surveillance as per cardiac surgery. However, this may never be a problem in his lifetime. 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) ([facility] V24, [facility] V28) 09/13/2020 Overview (01/15/2025): - Recovered LVEF status post COTTON BREEDER-D -Most recent echocardiogram 12/2022 showing normal LV [...] Encounters Date Type Department Care Team Description 04/01/2025 10:30 PM EDT Ancillary Procedure [facility] [address] [place] [address] 03/13/2025 1:20 PM EDT Ancillary Procedure [facility] [address] [place] [address] 02/04/2025 11:00 AM EDT Office Visit [facility] - [address] [place] [address] Mesha Lima NP Chronic heart failure with preserved ejection fraction (HFpEF) (CMS/HCC V24, CMS/HCC V28) (Primary Dx); Aneurysm of ascending aorta without rupture (CMS/HCC V24); Longstanding persistent atrial fibrillation (CMS/HCC V24, CMS/HCC V28); Coronary artery disease involving [place]-biloxi coronary artery of [place] heart without angina pectoris; Primary hypertension; Pure hypercholesterolemia 02/04/2025 Telephone [facility] - [address] [place] [address] Mesha Lima NP 02/04/2025 Telephone [facility] [address] [place] [address] Mesha Lima NP 02/03/2025 12:30 PM EDT Ancillary Procedure [facility] [address] [place] [address] 01/27/2025 Telephone [facility] [address] [place] [id number] Mesha Lima NP from Last 3 Months Surgical History Surgery [...] Description 04/27/2025 8:00 AM EDT Ancillary Procedure [facility] [address] [place] [address] 05/06/2025 11:20 AM EDT Office Visit [facility] [address] [place] [address] Mesha Lima, PERRI [address] [place] [address] [place] [address] Health Maintenance Due Date Last Done Comments Zoster Vaccines (1 of 2) 1959 RSV Immunization Adult Patients (1 - 1-dose 75+ series) 2014 Cholesterol Screening (Lipid Panel) 07/29/2022 Falls Risk Assessment 07/29/2022 Medicare Annual Wellness Visit 07/29/2022 Social Influencers of Health Screening 07/29/2022 Depression Screening 08/20/2024 COVID-19 Vaccine (4 - 2024-2 6 season) 2025 11/10/2021, 12/22/2020, 11/24/2020 Influenza Vaccine (#1) 2025 Hypertension/CHF/CAD Annual BMP [...] this topic Medical Devices Implanted Type Area Seismograph Supervisor Device Identifier Shelf Expiration Date Model / Serial / Lot Abbt-Stju 3357-40c [employer] Assura(Tm) [id number] Implanted:11/19 (Quantity not on file) Cardiac COTTON BREEDER-D ICD [facility] 3357-40C BlossomandTwigs.comFY ASSURA(TM) / [id number] / Procedures Procedure Name Priority Date/Time Associated Diagnosis Comments CARDIAC DEVICE CHECK- REMOTE- MURJ Routine 04/01/2025 10:27 PM EDT CARDIAC DEVICE CHECK- REMOTE- MURJ Routine 03/13/2025 1:19 PM EDT CARDIAC DEVICE CHECK- REMOTE- MURJ Routine 02/03/2025 12:26 PM EDT BASIC METABOLIC PANEL Routine 01/23/2025 7:16 AM EDT Chronic heart failure with preserved ejection fraction (HFpEF) (CMS/HCC V24, CMS/HCC V28) from Last 3 Months Results * Cardiac device check - Remote- MURJ (04/01/2025 10:27 PM EDT) Only the most recent of3 resultswithin the time period is included. Date Time Interrogation Session [id number] CV DEVICE CHECK Type Interrogation Session Remote Scheduled CV DEVICE CHECK Implantable Pulse Generator Seismograph Supervisor [employer] CV DEVICE CHECK Implantable Pulse Generator Type COTTON BREEDER-D CV DEVICE CHECK Implantable Pulse Generator Model 3357-40C [employer] Assura(TM) CV DEVICE CHECK Implantable Pulse Generator Serial Number [id number] CV DEVICE CHECK Implantable Pulse Generator Implant Date 20221215 CV DEVICE CHECK Battery Remaining Percentage 60.00 CV DEVICE CHECK Battery Remaining Longevity 46.0 CV DEVICE CHECK Battery Voltage 2.960 CV D EVICE CHECK Battery AIRFLIGHT ATTENDANTS SUPERVISOR Trigger 2.590 CV DEVICE CHECK Battery Status Middle of Service CV DEVICE CHECK Capacitor Charge Time 8.300 CV DEVICE CHECK COTTON BREEDER Statistic COTTON BREEDER Percent Paced 98.00 CV DEVICE CHECK Atrial Tachy Statistic AT/AF [place] Percent 1.00 CV DEVICE CHECK Lead Channel Sensing Intrinsic Amplitude 0.400 CV DEVICE CHECK Lead Channel Setting Sensing Sensitivity 0.30 CV DEVICE CHECK Lead Channel Impedance Value 340 CV DEVICE CHECK Lead Channel Sensing Intrinsic Amplitude 11.800 CV DEVICE CHECK Lead Channel Setting Sensing Sensitivity 0.50 CV DEVICE CHECK Lead Channel Impedance Value 350 CV DEVICE CHECK Lead Channel Pacing Threshold Amplitude 0.750 CV DEVICE CHECK Lead Channel Pacing Threshold Pulse Width 0.5 CV DEVICE CHECK Lead Channel RV Pacing Threshold Date 2025-03-30 CV DEVICE CHECK Lead Channel Setting Pacing Amplitude 2.000 CV DEVICE CHECK Lead Channel Setting Pacing Pulse Width 0.5 CV DEVICE CHECK Lead Channel Impedance Value 300 CV DEVICE CHECK Lead Channel Setting Pacing Amplitude 1.750 CV DEVICE CHECK Lead Channel Setting Pacing Pulse Width 1.0 CV DEVICE CHECK Bryce Setting Mode (NBG Code) VVIR CV DEVICE CHECK Ventricular chambers paced during COTTON BREEDER pacing. BiV CV DEVICE CHECK Bryce Setting Lower Rate Limit 70 CV DEVICE CHECK Bryce Setting AT Mode Switch Rate 180 CV DEVICE CHECK Bryce Setting Maximum Sensor Rate 110 CV DEVICE CHECK COTTON BREEDER LV-RV Delay 45 CV D EVICE CHECK Therapy Statistic Recent Shocks Delivered 0 CV DEVICE CHECK Therapy Statistic Recent Shocks Aborted 0 CV DEVICE CHECK Therapy Statistic Recent ATP Delivered 0 CV DEVICE CHECK Shock Measured Impedance 41 CV DEVICE CHECK Zone Setting Type Category [...] Anatomical Region Laterality Modality Device Interroga tion 03/30/2025 2:00 AM EDT Impressions 04/01/2025 1:55 PM EDT Heart Failure Diagnostic: Stable * Heart failure diagnostics assessed through the device * Status: Stable * No overt HF present Normal Remote: No Events * Normal Device Function * Alerts or events: None * Battery: Battery is at 60%, 3.83 yrs * Sensing, impedance and thresholds reviewed * Programmed parameters reviewed * Presenting rhythm reviewed * Heart Rate Histograms reviewed * No significant changes noted Narrative Procedure Note Jair Craig MD - 04/01/2025 IMPRESSION: Heart Failure Diagnostic: Stable * Heart failure diagnostics assessed through the device * Status: Stable * No overt HF present Normal Remote: No Events * Normal Device Function * Alerts or events: None * Battery: Battery is at 60%, 3.83 yrs * Sensing, impedance and thresholds reviewed * Programmed parameters reviewed * Presenting rhythm reviewed * Heart Rate Histograms reviewed * No significant changes noted us Jair Craig MD CV IMPLANTABLE CARDIAC DEVICE PROCEDURES Final Result * (ABNORMAL) Basic metabolic panel (01/23/2025 7:16 AM EDT) Pathologist [facility] Glucose 91 70 - 99 [...] 11:06 PM EDT Performed at: 01 - [facility] [id number] Caretaker: Joyce Cohen MD, Phone: [phone] us Mesha Lima NP LAB BLOOD ORDERABLES Final Resu lt [facility] 1 from Last 3 Months Insurance MEDICARE [facility] Advance Directives Documents on File Type Date Recorded 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
[2025-04-22 08:33] LABS: Prothrombin Time Whole Bld POC 66.0 sec (11.1-13.5); ~PT, ~INR - Anti Coag Clinic 5.5 (0.9-1.1)
--- NOTE | 2025-04-22 09:25 | MHC.OFFVISCO ---
Intake Intake Visit Reasons: Anticoagulation Allergies No Known Allergies Allergy (Verified 04/22/25 08:27) Medication List - Last Reconciled 04/22/25 by Jess Chavarria RN acetaminophen 1,000 mg PO .q8 hours PRN aspirin 81 mg PO DAILY atorvastatin (Lipitor) 40 mg PO DAILY ferrous sulfate 325 mg PO DAILY furosemide 60 mg PO QAM furosemide 40 mg PO QPM losartan 25 mg PO DAILY metoprolol succinate ER (Toprol XL) 200 mg PO DAILY omeprazole 40 mg PO DAILY polyethylene glycol 3350 (Miralax) 17 grams PO DAILY PRN sennosides (Senokot) 8.6 mg PO DAILY spironolactone 12.5 mg PO DAILY tamsulosin 0.4 mg PO DAILY warfarin 5 mg See Protocol PO DAILY Nursing Note PT.HERE TODAY WITH DAUGHTER BRUNA, APPEARING VERY PALE . DAUGHTER STATES THAT PT. HAS HAD SOME INCREASING SOB WITH MINIMAL EXERTION, WELL DARKENING STOOLS. PT.SAW PCP YESTERDAY, AND LABS WERE ORDERED THRU [facility]. PT.SENT TO LAB TODAY INR IS 5.5. H&H ALSO ADDED. AT 0915AM LAB ([facility]) CALLED WITH INR READING OF 5.7. PT.TO HOLD WARFARIN 2 DAYS AND RECHECK INR HERE ON 04/24/25. HGB: 9.2 HCT: 29.7 INR, H&H AND PLAN OF CARE REPORTED TO PCP(DAWOOD) AT 10AM. Anti-Coag Initial Assessment Social Hx Patient Tobacco Use Status: Former Tobacco user Tobacco use type: Cigarette and Cigar Alcohol intake frequency: does not drink Cardiovascular Hx: HTN, CHF, Arrhythmias (afib, ), Cardiomyopathy and Other (ashd, aneurysm- thoracic, hld, LBBB) Musculoskeletal Hx: Arthritis (knees, thr right) and Other (sciatica) Blood Disorder Hx: Anemia and Hyperlipidemia GI Hx: Diverticulosis and Other (gerd, colon polyps, pancreatic mass) Hx: Kidney Disease (ckd 3, ) and Prostate (prostatitis) Neurological Hx: Aneurysm (thoracic) Cancer HX: No Psych. Illness/Depression: Yes (hx depression) Coding Level of Care Code Est Patient Level 2 Diagnoses Current use of anticoagulant therapy Z79.01 Assessment & Plan Assessment & Plan (1) Current use of anticoagulant therapy: Code(s): Z79.01 - residential (current) use of anticoagulants Category: Medical Orders: Orders Prothrombin Time INR Today Z79.01 - residential (current) use of anticoagulants Complete Blood Count no Diff Today Z79.01 - residential (current) use of anticoagulants
== END 2025-04-22 11:02 | disposition home or self-care (01) ==
LOC: HO.ACS 08:02
PROVIDERS: PCP Internal Medicine; Visit Provider Internal Medicine Medical Oncology
DX: Z79.01 Long term (current) use of anticoagulants (principal)

== ENCOUNTER 2025-04-24 09:51 | Outpatient (AMB) | payer MEDICARE, SELFPAY ==
--- OUTSIDE RECORDS SUMMARY | 2025-02-11 11:00 | XMS_ITS | Continuity of Care Document ---
Author Organization [facility] Address [address] [place] [address] Phone Care Team Providers Care Sports Medicine Trainer Name Role Phone Maynor MAY, JI, BRI, Michael Unavailable U navailable Procedures Procedure Date Duplex Scan-extrem Veins; Uni/ CT & [place] J Advance Directives Directive Yes / No Effective Date File Name No Information Encounters Encounter Description Practice Location Reason(s) For Visit Diagnoses Date Provider Providers Copied on Encounter [facility], [address], [place], [id number], [place] tel:[phone] [facility] - [place] Pain in right leg 5 Maynor MAY, JI, BRI Rodriguez. [address], [address], [place], [place], [id number] , [place]. tel:[phone] Referring Provider: Ely Kidd MD, [address], [place], [address]. tel:[phone] Family History Family Member Type Diagnosis Age At Onset No Information Payers Payer name Insurance type Covered alliance party ID Authoriza tion(s) Medicare HEATHER MONTES [id number] [facility] AARP Supplement [place] [id number] 1 Social History Type Description Quantity Date [...]
[2025-04-24 10:11] LABS: Prothrombin Time Whole Bld POC 45.7 sec (11.1-13.5); ~PT, ~INR - Anti Coag Clinic 3.8 (0.9-1.1)
--- NOTE | 2025-04-24 10:26 | MHC.OFFVISCO ---
Intake Intake Visit Reasons: Anticoagulation Allergies No Known Allergies Allergy (Verified 04/22/25 08:27) Nursing Note INR: 3.8 out of therapeutic range of 2-3 Two days ago, INR 5.7 Medications and supplements reviewed Patient status: feels well Medications or supplements: no changes Diet: usual diet Denies any signs and symptoms of bleeding or clotting or unusual bruising Bleeding, bruising, clotting discussed Nutritional guidance given: pt wants to have beet soup. This will raise the INR but will hold warfarin today and his usual schedule is no warfarin on Sunday so will allow him to have the soup. Dose: hold warfarin today, no warfarin the next day 9Usual dose) then 5mg daily. He is having an EGD on 05/04/25 with a 5 day hold of warfarin. LD will be 04/28/25. When able to restart warfarin (per GI MD), will take 7.5mg X 2 days then 5mg daily F/U INR Date: 05/08/25?? Patient and daughter verbalizing understanding of instructions with read back given. Anti-Coag Initial Assessment Social Hx Patient Tobacco Use Status: Former Tobacco user Tobacco use type: Cigarette and Cigar Alcohol intake frequency: does not drink Cardiovascular Hx: HTN, CHF, Arrhythmias (afib, ), Cardiomyopathy and Other (ashd, aneurysm- thoracic, hld, LBBB) Musculoskeletal Hx: Arthritis (knees, thr right) and Other (sciatica) Blood Disorder Hx: Anemia and Hyperlipidemia GI Hx: Diverticulosis and Other (gerd, colon polyps, pancreatic mass) Hx: Kidney Disease (ckd 3, ) and Prostate (prostatitis) Neurological Hx: Aneurysm (thoracic) Cancer HX: No Psych. Illness/Depression: Yes (hx depression) Coding Level of Care Code Est Patient Level 1 Diagnoses Current use of anticoagulant therapy Z79.01 Results AMB INR Fingerstick AMB INR Fingerstick 3.8 Last Edit by Celia Sanders RN on 04/24/25 10:26 interface delay Assessment & Plan Assessment & Plan (1) Current use of anticoagulant therapy: Code(s): Z79.01 - tank terminal gauger (current) use of anticoagulants Category: Medical
--- OUTSIDE RECORDS SUMMARY | 2025-04-24 10:38 | XMS_ITS | Clinical Summary ---
Author Organization [address] [place] [address] Address [address] [place] [address] Phone Care Team Providers Care Line Ordering Clinician Name Role Phone Luisito Davenport MD Primary Care Provider +[phone] Allergies No known active allergies Medications aspirin [...] Problem Noted Date Diagnosed Date Nonischemic cardiomyopathy ([facility] V24, [facility] V28) 01/09/2025 CAD (coronary artery disease) 11/08/2022 [...] on current dose statin. Continue Atrial fibrillation ([facility] V24, [facility] V28) 1 Overview (01/15/2025): - Unsuccessful cardioversion [...] team for Watchman evaluation. Aortic aneurysm, thoracic ([facility] V24) 09/13/19 Overview (01/15/2025): Followed by Dr. Chavez Assessment & Plan (02/05/2025 7:22 AM EDT): Continue periodic surveillance as per cardiac surgery. However, this may never be a problem in his lifetime. 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) ([facility] V24, [facility] V28) 09/13/2020 Overview (01/15/2025): - Recovered LVEF status post CONSTRUCTION STONEMASON-D -Most recent echocardiogram 12/2022 showing normal LV [...] Description 04/01/2025 10:30 PM EDT Ancillary Procedure [facility] - [address] [place] [address] 03/13/2025 1:20 PM EDT Ancillary Procedure [facility] - [address] [place] [address] 02/04/2025 11:00 AM EDT Office Visit [facility] - [address] [place] [address] Mesha Lima NP Chronic heart failure with preserved ejection fraction (HFpEF) (CMS/HCC V24, CMS/HCC V28) (Primary Dx); Aneurysm of ascending aorta without rupture (CMS/HCC V24); Longstanding persistent atrial fibrillation (CMS/HCC V24, CMS/HCC V28); Coronary artery disease involving [place] coronary artery of [place] heart without angina pectoris; Primary hypertension; Pure hypercholesterolemia 02/04/2025 Telephone [facility] - [address] [place] [address] Mesha Lima NP 02/04/2025 Telephone [facility] - [address] [place] [address] Mesah Lima NP 02/03/2025 12:30 PM EDT Ancillary Procedure [facility] Card[facility] - [address] [place] [address] 01/27/2025 Telephone [facility] - [address] [place] [address] Mesha Lima NP from Last 3 Months [...] Description 04/27/2025 8:00 AM EDT Ancillary Procedure [facility] [address] [place] [address] 05/06/2025 11:20 AM EDT Office Visit [facility] [address] [place] [address] Mesha Lima, PERRI [address] [place] [address] Health Maintenance Due Date Last Done Comments [...] this topic Medical Devices Implanted Type Area Digital Archivist Device Identifier Shelf Expiration Date Model / Serial / Lot Abbt-Stju 3357-40c [employer]x [employer]fy Assura(Tm) [id number] Implanted:11/19 (Quantity not on file) Cardiac CONSTRUCTION STONEMASON-D ICD [facility] 3357-40C [employer] ASSURA(TM) / [id number] / Procedures Procedure Name Priority Date/Time Associated [...] period is included. Date Time Interrogation Session [id number] CV DEVICE CHECK Type Interrogation Session Remote Scheduled CV DEVICE CHECK Implantable Pulse Generator Digital Archivist [employer] CV DEVICE CHECK Implantable Pulse Generator Type CONSTRUCTION STONEMASON-D CV DEVICE CHECK Implantable Pulse Generator Model 3357-40C Digonex [employer]fy Assura(TM) CV DEVICE CHECK Implantable Pulse Generator Serial Number [id number] CV DEVICE CHECK Implantable Pulse Generator Implant Date 20221215 CV DEVICE CHECK Battery Remaining Percentage 60.00 CV DEVICE CHECK Battery Remaining Longevity 46.0 CV DEVICE CHECK Battery Voltage 2.960 CV D EVICE CHECK Battery DIE REPAIR MACHINIST Trigger 2.590 CV DEVICE CHECK Battery Status Middle of Service CV DEVICE CHECK Capacitor Charge Time 8.300 CV DEVICE CHECK CONSTRUCTION STONEMASON Statistic CONSTRUCTION STONEMASON Percent Paced 98.00 CV DEVICE CHECK Atrial Tachy Statistic AT/AF [place] Percent 1.00 CV DEVICE CHECK Lead Channel [...] CV DEVICE CHECK Ventricular chambers paced during CONSTRUCTION STONEMASON pacing. BiV CV DEVICE CHECK Bryce Setting Lower Rate Limit 70 CV DEVICE CHECK Bryce Setting AT Mode Switch Rate 180 CV DEVICE CHECK Bryce Setting Maximum Sensor Rate 110 CV DEVICE CHECK CONSTRUCTION STONEMASON LV-RV Delay 45 CV D EVICE CHECK [...] Basic metabolic panel (01/23/2025 7:16 AM EDT) Glucose 91 70 - 99 mg/dL [facility] [...] 11:06 PM EDT Performed at: 01 - [facility] [address] [id number] Concrete Mixer: Joyce Cohen MD, Phone: [phone] us Mesha Lima NP LAB BLOOD ORDERABLES Final Resu lt [facility] 1 from Last 3 Months Insurance MEDICARE [facility] Advance Directives Documents on File Type Date Recorded 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
== END 2025-04-24 10:32 | disposition home or self-care (01) ==
LOC: HO.ACS 09:51
PROVIDERS: PCP Internal Medicine; Visit Provider Internal Medicine Medical Oncology
DX: Z79.01 Long term (current) use of anticoagulants (principal)

== ENCOUNTER → 2025-04-24 09:51 | Outpatient (BNVA) | payer MEDICARE, SELFPAY | PROVIDERS: PCP Internal Medicine; Visit Provider Internal Medicine Medical Oncology | DX: Z51.81 Encounter for therapeutic drug level monitoring (principal); Z79.01 Long term (current) use of anticoagulants | CPT/HCPCS: 85610; 99211 ==

== ENCOUNTER 2025-05-01 09:31 | Outpatient (AMB) | payer MEDICARE, SELFPAY ==
--- OUTSIDE RECORDS SUMMARY | 2025-04-27 08:00 | XMS_ITS | Encounter Summary ---
Author Organization [facility] Address [address] [place] [address] Care Team Providers Care Roofer Applicator Name Role Phone Luisito Davenport MD Primary Care Provider [phone] Encounter Details Date Type Department Care Team (Latest Contact Info) Description 04/27/2025 8:00 AM EDT Ancillary Procedure [facility] Cardiology [facility] [address] [facility] [address] [place] [phone] Encounter for adjustment or management of cardiac device Social History Tobacco Use Types Packs/Day Years [...] on file documented as of this encounter Plan of Treatment Upcoming Encounters Date Type Department Care Team (Late st Contact Info) Description 05/06/2025 11:20 AM EDT Office Visit [facility] Cardiology [facility] [address] [place] [address] Mesha Lima NP [address] [place] [address] 04/29/2026 8:00 AM EDT Ancillary Procedure [facility] Cardiology [facility] [address] [place] [address] documented as of this encounter Procedures Procedure Name Priority Date/Time Associated Diagnosis Comments CARDIAC DEVICE CHECK- IN CLINIC- MUR Routine 04/27/2025 9:04 AM EDT Encounter for adjustment or management of cardiac device documented in this encounter Results * CARDIAC DEVICE CHECK- IN CLINIC- MURJ (04/27/2025 9:04 AM EDT) Date Time Interrogation Session [id number] CV DEVICE CHECK Implantable Pulse Generator Warehouse Stocker [employer] CV DEVICE CHECK Implantable Pulse Generator Type RANCH SUPERVISOR-D CV DEVICE CHECK Implantable Pulse Generator Model Unify Assura 3357-40C CV DEVICE CHECK Implantable Pulse Generator Serial Number [id number] CV DEVICE CHECK Implantable Pulse Generator Implant Date 20221215 CV DEVICE CHECK Battery Status Middle of Service CV DEVICE CHECK RANCH SUPERVISOR Statistic RANCH SUPERVISOR Percent Paced 98.00 CV DEVICE CHECK Lead Channel Sensing Intrinsic Amplitude 0.300 CV DEVICE CHECK Lead Channel Impedance Value 338 CV DEVICE CHECK Lead Channel Sensing Intrinsic Amplitude 11.800 CV DEVICE CHECK Lead Channel Setting Sensing Sensitivity 0.50 CV DEVICE CHECK Lead Channel Impedance Value 363 CV DEVICE CHECK Lead Channel Pacing Threshold Amplitude 0.750 CV DEVICE CHECK Lead Channel Pacing Threshold Pulse Width 0.5 CV DEVICE CHECK Lead Channel RV Pacing Threshold Date 2025-04-27 CV DEVICE CHECK Lead Channel Setting Pacing Amplitude 2.000 CV DEVICE CHECK Lead Channel Setting Pacing Pulse Width 0.5 CV DEVICE CHECK Lead Channel Impedance Value 313 CV DEVICE CHECK Lead Channel Pacing Threshold Amplitude 1.000 CV DEVICE CHECK Lead Channel Pacing Threshold Pulse Width 1.0 CV DEVICE CHECK Lead Channel Setting Pacing Amplitude 1.750 CV DEVICE CHECK Lead Channel Setting Pacing Pulse Width 1.0 CV DEVICE CHECK Bryce Setting Mode (NBG Code) VVIR CV DEVICE CHECK Ventricular chambers paced during RANCH SUPERVISOR pacing. LV -> RV CV DEVICE CHECK Bryce Setting Lower Rate Limit 70 CV DEVICE CHECK Bryce Setting AT Mode Switch Rate 180 CV DEVICE CHECK Bryce Setting Maximum Sensor Rate 110 CV DEVICE CHECK RANCH SUPERVISOR LV-RV Delay 45 CV D EVICE CHECK Zone Setting Type Category VF CV DEVICE CHECK Rate 200 CV DEVICE CHECK Therapies ATP While Charging, 36J, 40J, 40J CV DEVICE CHECK Zone Setting Status On CV DEVICE CHECK Zone ID 1 CV DEVICE CHECK Zone Setting Type Category VT-1 CV DEVICE CHECK Rate 160 CV DEVICE CHECK Zone Setting Status On CV DEVICE CHECK Zone ID 2 CV DEVICE CHECK Date of Service 2026-01-17 CV DEVICE CHECK Anatomical Region Laterality Modality Device Interroga tion 04/27/2025 Impressions 04/27/2025 9:46 AM EDT Normal In-Office: No Events * Normal Device Function * Alerts or events: None * Battery: MOS, 3.70 yrs * Sensing, impedance and thresholds reviewed and tested * Presenting Rhythm: BiVP 70 bpm * Underlying Rhythm: VS 30s w/ PVCs * Heart Rate Histograms reviewed * Pacing and Detection Parameters were evaluated Heart Failure Diagnostic: Stable * Heart failure diagnostics assessed through the device * Status: Stable * No overt HF present Narrative Procedure Note Jair Craig MD - 04/27/2025 IMPRESSION: Normal In-Office: No Events * Normal Device Function * Alerts or events: None * Battery: MOS, 3.70 yrs * Sensing, impedance and thresholds reviewed and tested * Presenting Rhythm: BiVP 70 bpm * Underlying Rhythm: VS 30s w/ PVCs * Heart Rate Histograms reviewed * Pacing and Detection Parameters were evaluated Heart Failure Diagnostic: Stable * Heart failure diagnostics assessed through the device * Status: Stable * No overt HF present us Order Referral Cardiovascular CV IMPLANTABLE CAR DIAC DEVICE PROCEDURES Final Result documented in this encounter Visit Diagnoses Diagnosis Encounter for adjustment or management of cardiac device Encounter for adjustment or management of cardiac device documented in this encounter Care Teams Roofer Applicator Relationship Specialty Start Date End Date Luisito Davenport MD [address] [place] [address] PCP - General Internal Medicine 05/29/12 documented as of this encounter
[2025-05-01 09:49] LABS: Prothrombin Time Whole Bld POC 15.9 sec (11.1-13.5); ~PT, ~INR - Anti Coag Clinic 1.3 (0.9-1.1)
--- NOTE | 2025-05-01 10:00 | MHC.OFFVISCO ---
Intake Intake Visit Reasons: Anticoagulation Allergies No Known Allergies Allergy (Verified 05/01/25 09:42) Medication List - Last Reconciled 05/01/25 by Celia Sanders RN acetaminophen 1,000 mg PO .q8 hours PRN aspirin 81 mg PO DAILY atorvastatin (Lipitor) 40 mg PO DAILY ferrous sulfate 325 mg PO DAILY furosemide 60 mg PO QAM furosemide 40 mg PO QPM losartan 25 mg PO DAILY metoprolol succinate ER (Toprol XL) 200 mg PO DAILY omeprazole 40 mg PO DAILY polyethylene glycol 3350 (Miralax) 17 grams PO DAILY PRN sennosides (Senokot) 8.6 mg PO DAILY spironolactone 12.5 mg PO DAILY tamsulosin 0.4 mg PO DAILY warfarin 5 mg See Protocol PO DAILY Nursing Note Pt to [facility] accompanied by daughter who is a nurse and manages her father's care. Pt is forgetful. He denies complaints today. INR: 1.3 out of therapeutic range of 2-3 Pt has a 5 day hold of warfarin for EGD on 05/04/25 with no bridging required per daughter. Per daughter, pt has EGD every 6 months due to gastric cancer. So far, the cancer has been able to be burned off per daughter. Pt refuses radiation or chemo. Medications and supplements reviewed No changes in health, diet, medications, or supplements, Denies any signs and symptoms of bleeding or bruising or clotting. Bleeding, bruising, clotting discussed Nutritional guidance given to avoid greens when restarting warfarin Dose: when able to restart warfarin (per MD), pt will take 7.5mg X 2 days and then usual dose of 5mg daily F/U INR: 1 week Patient verbalizes understanding of instructions given Anti-Coag Initial Assessment Social Hx Patient Tobacco Use Status: Former Tobacco user Tobacco use type: Cigarette and Cigar Alcohol intake frequency: does not drink Cardiovascular Hx: HTN, CHF, Arrhythmias (afib, ), Cardiomyopathy and Other (ashd, aneurysm- thoracic, hld, LBBB) Musculoskeletal Hx: Arthritis (knees, thr right) and Other (sciatica) Blood Disorder Hx: Anemia and Hyperlipidemia GI Hx: Diverticulosis and Other (gerd, colon polyps, pancreatic mass) Hx: Kidney Disease (ckd 3, ) and Prostate (prostatitis) Neurological Hx: Aneurysm (thoracic) Cancer HX: No Psych. Illness/Depression: Yes (hx depression) Coding Level of Care Code Est Patient Level 1 Diagnoses Current use of anticoagulant therapy Z79.01 Results AMB INR Fingerstick AMB INR Fingerstick 1.3 Last Edit by Celia Sanders RN on 05/01/25 09:50 interface delay Assessment & Plan Assessment & Plan (1) Current use of anticoagulant therapy: Code(s): Z79.01 - snf (current) use of anticoagulants Category: Medical
--- OUTSIDE RECORDS SUMMARY | 2025-05-01 10:38 | XMS_ITS | Clinical Summary ---
Author Organization [address] [place] [address] Address [address] [place] [address] Phone Care Team Providers Care Funeral Pre Arrangement Specialist Name Role Phone Luisito Davenport MD Primary Care Provider [phone] Allergies No known active allergies Medications aspirin [...] Problem Noted Date Diagnosed Date Nonischemic cardiomyopathy ([facility] V24, [facility] V28) 01/09/2025 CAD (coronary artery disease) 11/08/2022 [...] on current dose statin. Continue Atrial fibrillation ([facility] V24, [facility] V28) 1 Overview (01/15/2025): - Unsuccessful cardioversion [...] team for Watchman evaluation. Aortic aneurysm, thoracic ([facility] V24) 09/13/19 Overview (01/15/2025): Followed by Dr. Cahvez Assessment & Plan (02/05/2025 7:22 AM EDT): Continue periodic surveillance as per cardiac surgery. However, this may never be a problem in his lifetime. 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) ([facility] V24, [facility] V28) 09/13/2020 Overview (01/15/2025): - Recovered LVEF status post DAMPENER OPERATOR-D -Most recent echocardiogram 12/2022 showing normal LV [...] Encounters Date Type Department Care Team Description 04/27/2025 8:00 AM EDT Ancillary Procedure [facility] Cardiology [facility] [address] [place] [address] Encounter for adjustment or management of cardiac device 04/01/2025 10:30 PM EDT Ancillary Procedure [facility] Cardiology [facility] [address] [place] [address] 03/13/2025 1:20 PM EDT Ancillary Procedure [facility] Cardiology [facility] [address] [place] [address] 02/04/2025 11:00 AM EDT Office Visit [facility] Cardiology [facility] [address] [place] [address] Mesha Lima NP Chronic heart failure with preserved ejection fraction (HFpEF) (CMS/HCC V24, CMS/HCC V28) (Primary Dx); Aneurysm of ascending aorta without rupture (CMS/HCC V24); Longstanding persistent atrial fibrillation (CMS/HCC V24, CMS/HCC V28); Coronary artery disease involving standing rock coronary artery of standing rock heart without angina pectoris; Primary hypertension; Pure hypercholesterolemia 02/04/2025 Telephone [facility] Cardiology [facility] [address] [place] [phone] Mesha Lima NP 02/04/2025 Telephone [facility] Cardiology [facility] [address] [place] [address] Mesha Lima NP 02/03/2025 12:30 PM EDT Ancillary Procedure [facility] Cardiology [facility] [address] [place] [address] from Last 3 Months Surgical History Surgery [...] Description 05/06/2025 11:20 AM EDT Office Visit [facility] Cardiology [facility] [address] [place] [address] Mesha Lima, PERRI [address] [place] [address] 04/29/2026 8:00 AM EDT Ancillary Procedure [facility] [address] [place] [phone] Health Maintenance Due Date Last Done Comments [...] this topic Medical Devices Implanted Type Area Rv Body Mechanic Device Identifier Shelf Expiration Date Model / Serial / Lot Abbt-Stju 3357-40c Unify Assura(Tm) [id number] Implanted:11/19 (Quantity not on file) Cardiac DAMPENER OPERATOR-D ICD [facility] 3357-40C UNIFY ASSURA(TM) / [id number] / Abbt-Stju Unify Assura [id number] Implanted:11/19 (Quantity not on file) Cardiac DAMPENER OPERATOR-D ICD [facility] UNIFY ASSURA 3357-40C / [id number] / Procedures Procedure Name Priority Date/Time Associated Diagnosis Comments CARDIAC DEVICE CHECK- IN CLINIC- MURJ Routine 04/27/2025 9:04 AM EDT Encounter for adjustment or management of cardiac device CARDIAC DEVICE CHECK- REMOTE- MURJ Routine 04/01/2025 10:27 PM EDT CARDIAC DEVICE CHECK- REMOTE- MURJ Routine 03/13/2025 1:19 PM EDT CARDIAC DEVICE CHECK- REMOTE- MURJ Routine 02/03/2025 12:26 PM EDT BASIC METABOLIC PANEL Routine 01/23/2025 7:16 AM EDT Chronic heart failure with preserved ejection fraction (HFpEF) (CMS/HCC V24, CMS/HCC V28) from Last 3 Months or Most Recently Relevant to Health Maintenance Results * CARDIAC DEVICE CHECK- IN CLINIC- MURJ (04/27/2025 9:04 AM EDT) Date Time Interrogation Session [id number] CV DEVICE CHECK Implantable Pulse Generator Rv Body Mechanic [employer] CV DEVICE CHECK Implantable Pulse Generator Type DAMPENER OPERATOR-D CV DEVICE CHECK Implantable Pulse Generator Model Nikko Mcgee 3357-40C CV DEVICE CHECK Implantable Pulse Generator Serial Number [id number] CV DEVICE CHECK Implantable Pulse Generator Implant Date 20221215 CV DEVICE CHECK Battery Status Middle of Service CV DEVICE CHECK DAMPENER OPERATOR Statistic DAMPENER OPERATOR Percent Paced 98.00 CV DEVICE CHECK Lead [...] CV DEVICE CHECK Ventricular chambers paced during DAMPENER OPERATOR pacing. LV -> RV CV DEVICE CHECK Bryce Setting Lower Rate Limit 70 CV DEVICE CHECK Bryce Setting AT Mode Switch Rate 180 CV DEVICE CHECK Bryce Setting Maximum Sensor Rate 110 CV DEVICE CHECK DAMPENER OPERATOR LV-RV Delay 45 CV D EVICE CHECK [...] IMPLANTABLE CAR DIAC DEVICE PROCEDURES Final Result * Cardiac device check - Remote- MURJ (04/01/2025 10:27 PM EDT) Only the most recent of3 resultswithin the time period is included. Date Time Interrogation Session [id number] CV DEVICE CHECK Type Interrogation Session Remote Scheduled CV DEVICE CHECK Implantable Pulse Generator Rv Body Mechanic [employer]Porter CV DEVICE CHECK Implantable Pulse Generator Type DAMPENER OPERATOR-D CV DEVICE CHECK Implantable Pulse Generator Model 3357-40C [employer] CV DEVICE CHECK Implantable Pulse Generator Serial Number [id number] CV DEVICE CHECK Implantable Pulse Generator Implant Date 20221215 CV DEVICE CHECK Battery Remaining Percentage 60.00 CV DEVICE CHECK Battery Remaining Longevity 46.0 CV DEVICE CHECK Battery Voltage 2.960 CV D EVICE CHECK Battery REPLACER Trigger 2.590 CV DEVICE CHECK Battery Status Middle of Service CV DEVICE CHECK Capacitor Charge Time 8.300 CV DEVICE CHECK DAMPENER OPERATOR Statistic DAMPENER OPERATOR Percent Paced 98.00 CV DEVICE CHECK Atrial Tachy Statistic AT/AF [place] Percent 1.00 CV DEVICE CHECK Lead Channel [...] CV DEVICE CHECK Ventricular chambers paced during DAMPENER OPERATOR pacing. 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
== END 2025-05-01 10:08 | disposition home or self-care (01) ==
LOC: HO.ACS 09:31
PROVIDERS: PCP Internal Medicine; Visit Provider Internal Medicine Medical Oncology
DX: Z79.01 Long term (current) use of anticoagulants (principal)

== ENCOUNTER → 2025-05-01 09:31 | Outpatient (BNVA) | payer MEDICARE, SELFPAY | PROVIDERS: PCP Internal Medicine; Visit Provider Internal Medicine Medical Oncology | DX: Z51.81 Encounter for therapeutic drug level monitoring (principal); Z79.01 Long term (current) use of anticoagulants | CPT/HCPCS: 85610; 99211 ==

== ENCOUNTER 2025-05-08 09:57 | Outpatient (AMB) | payer MEDICARE, SELFPAY ==
--- OUTSIDE RECORDS SUMMARY | 2025-05-06 11:20 | XMS_ITS | Encounter Summary ---
Author Organization [facility] Address [address] [place] [address] Care Team Providers Care Travel Money Advisor Name Role Phone Luisito Davenport MD Primary Care Provider [phone] Reason for Visit * Reason Comments Follow-up Encounter Details Date Type Department Care Team (Latest Contact Info) Description 05/06/2025 11:20 AM EDT Office Visit [facility] [address] [place] [phone] Mesha Lima NP [address] [place] [address] Aneurysm of ascending aorta without rupture (CMS/HCC V24) (Primary Dx); Longstanding persistent atrial fibrillation (CMS/HCC V24, CMS/HCC V28); Coronary artery disease involving [place] coronary artery of [place] heart without angina pectoris; Chronic heart failure with preserved ejection fraction (HFpEF) (CMS/HCC V24, CMS/HCC V28); Primary hypertension; Pure hypercholesterolemia Social History Tobacco Use Types Packs/Day Years Used Date Smoking Tobacco: Never Smokeless Tobacco: Never Alcohol Use Standard Drinks/Week Comments Not Currently 0 (1 standard drink = 0.6 oz pur e alcohol) Sex and Gender Information Value Date Recorded Sex Assigned at Male 05/07/2025 4:36 PM EDT Legal Sex Male 3:28 AM EST Gender Identity Male 05/07/2025 4:36 PM EDT Sexual Orientation Straight 05/07/2025 4: 36 PM EDT documented as of this encounter Last Filed Vital Signs Vital Sign Reading Time Taken Comments Blood Pressure 96/50 05/06/2025 11:16 AM EDT Pulse 70 05/06/2025 11:16 AM EDT Temperature - - Respiratory Rate - - Oxygen Saturation 95% 05/06/2025 11:16 AM EDT Inhaled Oxygen Concentration - - Weight 95.8 kg (211 lb 3.2 oz) 05/06/2025 11:16 AM EDT Height 175.3 cm (5' 9 ) 05/06/2025 11:16 AM EDT Body Mass Index 31.19 05/06/2025 11:16 AM EDT documented in this encounter Progress Notes * Mesha Lima NP - 05/06/2025 12:31 PM EDTAssociated Problem(s): HLD (hyperlipidemia) Well controlled lipid profile on current dose statin. Continue * Mesha Lima NP - 05/06/2025 12:30 PM EDTAssociated Problem(s): Hypertension The patient's blood pressure is somewhat soft today, but asymptomatic. Continue his current treatment plan with ARB, BB, and MRA. If he has any dizziness, would reduce his diuretic and use bursts of additional lasix if needed. * Mesha Lima NP - 05/06/2025 12:26 PM EDTAssociated Problem(s): Chronic heart failure with preserved ejection fraction (HFpEF) (CMS/HCC V24,CMS/HCC V28) The patient is currently pleased with his breathing. He has mild lower extremity edema which he attributes to intermittent sodium indiscretion.. His thoracic impedance is stable. Continue current treatment plan with BB, ARB, MRA and diuretic. SGLT2i remains cost prohibitive and so he will remain oncurrent dose lasix. * Mesha Lima NP - 05/06/2025 12:24 PM EDTAssociated Problem(s): CAD (coronary artery disease) The patient has no concerning anginal sounding discomfort to his current albeit somewhat limited MET workload. He will continue his beta-anderson, aspirin and statin at current doses. He will notify me if he has any changes in his current condition. * Mesha Lima NP - 05/06/2025 12:23 PM EDTAssociated Problem(s): Atrial fibrillation ([facility]/HCC V24, CMS/HCC V28) Patient's heart rate remains well supported on high dose beta-anderson therapy with appropriate biventricular pacing. Despite his anemia/GI carcinoma, he remains anticoagulated with warfarin. His H&H appears stable, but he plans to see hematology. Certainly, could consider Watchman, but the patient seems to be somewhat hesitant to undergo procedures. Will continue to follow this closely * Mesha Lima NP - 05/06/2025 12:19 PM EDTAssociated Problem(s): Aortic aneurysm, thoracic ([facility] V24) The patient and his daughter tell me today that he is not interested in continuing routine surveillance of his thoracic aortic aneurysm. He tells me that he does not want aortic root repair surgery. This is certainly reasonable given his age and multiple intersecting medical issues. They have already reached out to Dr. Chavez's office to discuss this but have not heard back yet. If they do nothear back by next week, I would be happy to reach out on their behalf to let Dr. Chavez know directly. documented in this encounter Plan of Treatment Upcoming Encounters Date Type Department Care Team (Late st Contact Info) Description 08/05/2025 7:40 AM EST Office Visit [facility] [address] [place] [address] Mesha Lima NP [address] [place] [address] 04/29/2026 8:00 AM EDT Ancillary Procedure [facility] [address] [place] [address] documented as of this encounter Visit Diagnoses Diagnosis Aneurysm of ascending aorta without rupture ([facility] V24)- Primary Longstanding persistent atrial fibrillation (CMS/[facility] V24, [facility] V28) Coronary artery disease involving [place] coronary artery of wy[place] heart without angina pectoris Chronic heart failure with preserved ejection fraction (HFpEF) (CMS/[facility] V24, [facility] V28) Primary hypertension Unspecified essential hypertension Pure hypercholesterolemia Encounter for adjustment or management of cardiac device documented in this encounter Care Teams Travel Money Advisor Relationship Specialty Start Date End Date Luisito Davenport MD [address] [place] [address] PCP - General Internal Medicine 05/29/12 documented as of this encounter
[2025-05-08 10:04] LABS: Prothrombin Time Whole Bld POC 20.7 sec (11.1-13.5); ~PT, ~INR - Anti Coag Clinic 1.7 (0.9-1.1)
--- NOTE | 2025-05-08 10:17 | MHC.OFFVISCO ---
Intake Intake Visit Reasons: Anticoagulation Allergies No Known Allergies Allergy (Verified 05/08/25 09:58) Medication List - Last Reconciled 05/08/25 by Celia Sanders RN acetaminophen 1,000 mg PO .q8 hours PRN aspirin 81 mg PO DAILY atorvastatin (Lipitor) 40 mg PO DAILY ferrous sulfate 325 mg PO DAILY furosemide 60 mg PO QAM furosemide 40 mg PO QPM losartan 25 mg PO DAILY metoprolol succinate ER (Toprol XL) 200 mg PO DAILY omeprazole 40 mg PO DAILY polyethylene glycol 3350 (Miralax) 17 grams PO DAILY PRN sennosides (Senokot) 8.6 mg PO DAILY spironolactone 12.5 mg PO DAILY tamsulosin 0.4 mg PO DAILY warfarin 5 mg See Protocol PO DAILY Nursing Note INR: 1.7 out of therapeutic range of 2-3 S/P EGD on 05/04/25 with 5 day hold of warfarin. Pt was able to restart warfarin on the evening of the EGD Medications and supplements reviewed No changes in health, diet, medications, or supplements, Denies any signs and symptoms of bleeding or bruising or clotting. Bleeding, bruising, clotting discussed Nutritional guidance given to avoid greens today Dose: increase today's dose to 7.5mg and then 2mg tomorrow then resume 5mg X 6 days and 0mg X 1 day (Sat) F/U INR: 1 week Patient verbalizes understanding of instructions given Anti-Coag Initial Assessment Social Hx Patient Tobacco Use Status: Former Tobacco user Tobacco use type: Cigarette and Cigar Alcohol intake frequency: does not drink Cardiovascular Hx: HTN, CHF, Arrhythmias (afib, ), Cardiomyopathy and Other (ashd, aneurysm- thoracic, hld, LBBB) Musculoskeletal Hx: Arthritis (knees, thr right) and Other (sciatica) Blood Disorder Hx: Anemia and Hyperlipidemia GI Hx: Diverticulosis and Other (gerd, colon polyps, pancreatic mass) Hx: Kidney Disease (ckd 3, ) and Prostate (prostatitis) Neurological Hx: Aneurysm (thoracic) Cancer HX: No Psych. Illness/Depression: Yes (hx depression) Coding Level of Care Code Est Patient Level 1 Diagnoses Current use of anticoagulant therapy Z79.01 Results AMB INR Fingerstick AMB INR Fingerstick 1.7 Last Edit by Celia Sanders RN on 05/08/25 10:18 interface delay Assessment & Plan Assessment & Plan (1) Current use of anticoagulant therapy: Code(s): Z79.01 - skilled nursing (current) use of anticoagulants Category: Medical
--- OUTSIDE RECORDS SUMMARY | 2025-05-08 10:29 | XMS_ITS | Clinical Summary ---
Author Organization [address] [facility] Address [address] [place] [address] Phone Care Team Providers Care Water Gas Operator Name Role Phone Luisito Davenport MD Primary Care Provider [phone] Allergies No known active allergies Medications aspirin [...] warfarin (COUMADIN) 1 mg tablet Managed by [facility] coumadin clinic Active spironolactone (ALDACTONE) 25 mg tablet TAKE 1/2 TABLET EVERY DAY 45 tablet 3 5 Active furosemide (LASIX) 40 mg tablet TAKE 2 TABLETS EVERY MORNING AND TAKE 1 TABLET IN AFTERNOON 270 tablet 3 5 Active Additional Information Patient taking differently: 2 tablet oral Every morning, And 1.5 tablets in the afternoon, Informant: Self, Reported on 05/06/2025 losartan (COZAAR) 50 mg tablet Take 0.5 [...] 1 TABLET EVERY DAY 90 tablet 3 Active Farxiga 10 mg tablet Take 1 tablet (10 mg total) by mouth 1 (one) time each day. 90 tablet 3 Active Additional Information Patient not taking.Reported on 05/06/2025 Active Problems Problem Noted Date Diagnosed Date Nonischemic cardiomyopathy ([facility] V24, [facility] V28) 01/09/2025 CAD (coronary artery disease) 11/08/2022 Overview (01/15/2025): - Mild nonobstructive CAD on cath 2007 -Nuclear stress test 08/2019 without evidence of ischemia or infarct, LVEF 50% Assessment & Plan (05/06/2025 12:24 PM EDT): The patient has no concerning anginal sounding discomfort to his current albeit somewhat limited MET workload. He will continue his beta-anderson, aspirin and statin at current doses. He will notify me if he has any changes in his current condition. Assessment & Plan (02/05/2025 7:23 AM EDT): The patient does not have anginal sounding discomfort. Continue his medical therapy with aspirin, beta-anderson, ARB and statin. Assessment & Plan (01/15/2025 12:04 PM EDT): The patient has no anginal sounding discomfort. Continue medical therapy with aspirin, beta-anderson, statin. Follow his GI bleeding with ongoing antiplatelet use HLD (hyperlipidemia) 11/08/2022 Assessment & Plan (05/06/2025 12:31 PM EDT): Well controlled lipid profile on current dose statin. Continue Assessment & Plan (02/05/2025 7:26 AM EDT): Well-controlled lipid profile on current dose statin. Continue Atrial fibrillation ([facility] V24, [facility] V28) 1 Overview (01/15/2025): - Unsuccessful cardioversion -Anticoagulated with warfarin -Heart rate supported by BiV pacemaker Assessment & Plan (05/06/2025 12:23 PM EDT): Patient's heart rate remains well supported on high dose beta-anderson therapy with appropriate biventricular pacing. Despite his anemia/GI carcinoma, he remains anticoagulated with warfarin. His H&H appears stable, but he plans to see hematology. Certainly, could consider Watchman, but the patient seems to be somewhat hesitant to undergo procedures. Will continue to follow this closely Assessment & Plan (02/05/2025 7:22 AM EDT): [...] team for Watchman evaluation. Aortic aneurysm, thoracic ([facility] V24) 09/13/19 21 Overview (01/15/2025): Followed by Dr. Chavez Assessment & Plan (05/06/2025 12:19 PM EDT): The patient and his daughter tell me [...] not heard back yet. If they do not hear back by next week, I would be happy to reach out on their behalf to let Dr. Chavez know directly. Assessment & Plan (02/05/2025 7:22 AM EDT): Continue periodic surveillance as per cardiac surgery. However, this may never be a problem in his lifetime. 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 He has mild lower extremity edema which he attributes to intermittent sodium indiscretion.. His thoracic impedance is stable. Continue current treatment plan with BB, ARB, MRA and diuretic. SGLT2i remains cost prohibitive and so he will remain on current dose lasix. Assessment & Plan (02/05/2025 7:26 AM EDT): [...] his myopathy. Hypertension 09/13/2020 Assessment & Plan (05/06/2025 12:30 PM EDT): The patient's blood pressure is somewhat soft today, but asymptomatic. Continue his current treatment plan with ARB, BB, and MRA. If he has any dizziness, would reduce his diuretic and use bursts of additional lasix if needed. Assessment & Plan (02/05/2025 7:26 AM EDT): [...] Encounters Date Type Department Care Team Description 05/06/2025 11:20 AM EDT Office Visit [facility] Cardiology [facility] [address] [place] [address] Mesha Lima, PERRI Aneurysm of ascending aorta without rupture (CMS/HCC V24) (Primary Dx); Longstanding persistent atrial fibrillation (CMS/HCC V24, CMS/HCC V28); Coronary artery disease involving elem coronary artery of elem heart without angina pectoris; Chronic heart failure with preserved ejection fraction (HFpEF) (CMS/HCC V24, CMS/HCC V28); Primary hypertension; Pure hypercholesterolemia 04/27/2025 8:00 AM EDT Ancillary Procedure [facility] Cardiology [facility] [address] [place] [address] Encounter for adjustment or management of cardiac device 04/01/2025 10:30 PM EDT Ancillary Procedure [facility] [address] [place] [address] 03/13/2025 1:20 PM EDT Ancillary Procedure [facility] [address] [facility] [address] [place] [address] from Last 3 Months Surgical History Surgery [...] Orientation Straight 05/07/2025 4: 36 PM EDT Obstetrics History Last Filed Vital Signs Vital [...] Mass Index 31.19 05/06/2025 11:16 AM EDT Plan of Treatment Upcoming Encounters Date Type Department Care Team (Late st Contact Info) Description 08/05/2025 7:40 AM EST Office Visit [facility] Cardiology [facility] [address] [place] [phone] Mesha Lima NP [address] [place] [address] 04/29/2026 8:00 AM EDT Ancillary Procedure [facility] [address] [facility] [address] [place] [id number] Health Maintenance Due Date Last Done Comments [...] this topic Medical Devices Implanted Type Area Circle Beveler Device Identifier Shelf Expiration Date Model / Serial / Lot Abbt-Stju 3357-40c Unify Assura(Tm) [id number] Implanted:11/19 (Quantity not on file) Cardiac MEDICAL WRITER-D ICD [facility] 3357-40C UNIFY ASSURA(TM) / [id number] / Abbt-Stju Unify Assura 3357-40c [id number] Implanted:11/19 (Quantity not on file) Cardiac MEDICAL WRITER-D ICD [facility] UNIFY ASSURA 3357-40C / [id number] / Procedures Procedure Name Priority Date/Time Associated Diagnosis Comments CARDIAC DEVICE CHECK- IN CLINIC- MURJ Routine 04/27/2025 9:04 AM EDT Encounter for adjustment or management of cardiac device CARDIAC DEVICE CHECK- REMOTE- MURJ Routine 04/01/2025 10:27 PM EDT CARDIAC DEVICE CHECK- REMOTE- MURJ Routine 03/13/2025 1:19 PM EDT BASIC METABOLIC PANEL Routine 01/23/2025 7:16 AM EDT Chronic heart failure with preserved ejection fraction (HFpEF) (CMS/HCC V24, CMS/HCC V28) from Last 3 Months or Most Recently Relevant to Health Maintenance Results * CARDIAC DEVICE CHECK- IN CLINIC- MURJ (04/27/2025 9:04 AM EDT) Date Time Interrogation Session [id number] CV DEVICE CHECK Implantable Pulse Generator Circle Beveler [place] CV DEVICE CHECK Implantable Pulse Generator Type MEDICAL WRITER-D CV DEVICE CHECK Implantable Pulse Generator Model Unify Assura 3357-40C CV DEVICE CHECK Implantable Pulse Generator Serial Number [id number] CV DEVICE CHECK Implantable Pulse Generator Implant Date 20221215 CV DEVICE CHECK Battery Status Middle of Service CV DEVICE CHECK MEDICAL WRITER Statistic MEDICAL WRITER Percent Paced 98.00 CV DEVICE CHECK Lead [...] CV DEVICE CHECK Ventricular chambers paced during MEDICAL WRITER pacing. LV -> RV CV DEVICE CHECK Bryce Setting Lower Rate Limit 70 CV DEVICE CHECK Bryce Setting AT Mode Switch Rate 180 CV DEVICE CHECK Bryce Setting Maximum Sensor Rate 110 CV DEVICE CHECK MEDICAL WRITER LV-RV Delay 45 CV D EVICE CHECK [...] 10:27 PM EDT) Only the most recent of2 resultswithin the time period is included. Date Time Interrogation Session [id number] CV DEVICE CHECK Type Interrogation Session Remote Scheduled CV DEVICE CHECK Implantable Pulse Generator Circle Beveler [place] CV DEVICE CHECK Implantable Pulse Generator Type MEDICAL WRITER-D CV DEVICE CHECK Implantable Pulse Generator Model 3357-40C ThirdMotionApto() CV DEVICE CHECK Implantable Pulse Generator Serial Number [id number] CV DEVICE CHECK Implantable Pulse Generator Implant Date 20221215 CV DEVICE CHECK Battery Remaining Percentage 60.00 CV DEVICE CHECK Battery Remaining Longevity 46.0 CV DEVICE CHECK Battery Voltage 2.960 CV D EVICE CHECK Battery PACKAGE DESIGNER Trigger 2.590 CV DEVICE CHECK Battery Status Middle of Service CV DEVICE CHECK Capacitor Charge Time 8.300 CV DEVICE CHECK MEDICAL WRITER Statistic MEDICAL WRITER Percent Paced 98.00 CV DEVICE CHECK Atrial Tachy Statistic AT/AF [place] Percent 1.00 CV DEVICE CHECK Lead Channel [...] CV DEVICE CHECK Ventricular chambers paced during MEDICAL WRITER pacing. BiV CV DEVICE CHECK Bryce Setting Lower Rate Limit 70 CV DEVICE CHECK Bryce Setting AT Mode Switch Rate 180 CV DEVICE CHECK Bryce Setting Maximum Sensor Rate 110 CV DEVICE CHECK MEDICAL WRITER LV-RV Delay 45 CV D EVICE CHECK [...] Histograms reviewed * No significant changes noted Jair Craig MD CV IMPLANTABLE CARDIAC DEVICE [...] PM EDT Performed at: 01 - [facility] [address] [id number] Rack Washer: Joyce Cohen MD, Phone: [phone] Mesha Lima NP LAB BLOOD ORDERABLES Final Resu lt [facility] 1 from Last 3 Months or Most Recently Relevant to Health Maintenance Insurance MEDICARE [facility] Advance Directives Documents on File Type Date Recorded 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
== END 2025-05-08 10:23 | disposition home or self-care (01) ==
LOC: HO.ACS 09:57
PROVIDERS: PCP Internal Medicine; Visit Provider Internal Medicine Medical Oncology
DX: Z79.01 Long term (current) use of anticoagulants (principal)

== ENCOUNTER → 2025-05-08 09:57 | Outpatient (BNVA) | payer MEDICARE, SELFPAY | PROVIDERS: PCP Internal Medicine; Visit Provider Internal Medicine Medical Oncology | DX: Z51.81 Encounter for therapeutic drug level monitoring (principal); Z79.01 Long term (current) use of anticoagulants | CPT/HCPCS: 85610; 99211 ==

== ENCOUNTER 2025-05-15 08:01 | Outpatient (AMB) | payer MEDICARE, SELFPAY ==
--- OUTSIDE RECORDS SUMMARY | 2025-05-15 08:07 | XMS_ITS | Clinical Summary ---
Author Organization [address] [facility] Address [address] [place] [address] Phone Care Team Providers Care Orientation And Mobility Specialist Name Role Phone Luisito Davenport MD Primary Care Provider [phone] Allergies No known active allergies Medications aspirin [...] warfarin (COUMADIN) 1 mg tablet Managed by [facility] coumadin clinic Active spironolactone (ALDACTONE) 25 mg [...] Problem Noted Date Diagnosed Date Nonischemic cardiomyopathy ([facility] V24, [facility] V28) 01/09/2025 CAD (coronary artery [...] on current dose statin. Continue Atrial fibrillation ([facility] V24, [facility] V28) 1 Overview (01/15/2025): - [...] team for Watchman evaluation. Aortic aneurysm, thoracic ([facility] V24) 09/13/19 21 Overview (01/15/2025): Followed by [...] Overview (01/15/2025): - Recovered LVEF status post FRANCHISE BUSINESS CONSULTANT-D -Most recent echocardiogram 12/2022 showing normal [...] Description 05/06/2025 11:20 AM EDT Office Visit [facility] Cardiology [facility] [address] [place] [address] Mesha Lima, PERRI Aneurysm of ascending aorta without rupture (CMS/HCC V24) (Primary Dx); Longstanding persistent atrial fibrillation (CMS/HCC V24, CMS/HCC V28); Coronary artery disease involving lower brule coronary artery of [place] b[place] heart without angina pectoris; Chronic heart failure with preserved ejection fraction (HFpEF) (CMS/HCC V24, CMS/HCC V28); Primary hypertension; Pure hypercholesterolemia 04/27/2025 8:00 AM EDT Ancillary Procedure [facility] Card[facility] [address] [place] [address] Encounter for adjustment or management of cardiac device 04/01/2025 10:30 PM EDT Ancillary Procedure [facility] [address] [place] [address] 03/13/2025 1:20 PM EDT Ancillary Procedure [facility] [address] [facility] [address] [place] [address] from Last 3 Months Surgical [...] Description 08/05/2025 7:40 AM EST Office Visit [facility] Card[facility] [address] [place] [phone] Mesha Lima NP [address] [place] [address] 04/29/2026 8:00 AM EDT Ancillary Procedure [facility] [address] [facility] [address] [place] [phone] Health Maintenance Due Date Last Done Comments [...] this topic Medical Devices Implanted Type Area Assistant Chief Nursing Officer Device Identifier Shelf Expiration Date Model / Serial / Lot Abbt-Stju 3357-40c Unify Assura(Tm) [id number] Implanted:11/19 (Quantity not on file) Cardiac FRANCHISE BUSINESS CONSULTANT-D ICD [facility] 3357-40C UNIFY ASSURA(TM) / [id number] / Abbt-Stju Unify Assura 3357-40c [id number] Implanted:11/19 (Quantity not on file) Cardiac FRANCHISE BUSINESS CONSULTANT-D ICD [facility] UNIFY ASSURA 3357-40C / [id number] / Procedures Procedure Name Priority Date/Time Associated [...] 9:04 AM EDT) Date Time Interrogation Session [id number] CV DEVICE CHECK Implantable Pulse Generator Assistant Chief Nursing Officer [employer] CV DEVICE CHECK Implantable Pulse Generator Type FRANCHISE BUSINESS CONSULTANT-D CV DEVICE CHECK Implantable Pulse Generator Model Unify Assura 3357-40C CV DEVICE CHECK Implantable Pulse Generator Serial Number [id number] CV DEVICE CHECK Implantable Pulse Generator Implant Date 20221215 CV DEVICE CHECK Battery Status Middle of Service CV DEVICE CHECK FRANCHISE BUSINESS CONSULTANT Statistic FRANCHISE BUSINESS CONSULTANT Percent Paced 98.00 CV DEVICE CHECK Lead [...] CV DEVICE CHECK Ventricular chambers paced during FRANCHISE BUSINESS CONSULTANT pacing. LV -> RV CV DEVICE CHECK Bryce Setting Lower Rate Limit 70 CV DEVICE CHECK Bryce Setting AT Mode Switch Rate 180 CV DEVICE CHECK Bryce Setting Maximum Sensor Rate 110 CV DEVICE CHECK FRANCHISE BUSINESS CONSULTANT LV-RV Delay 45 CV D EVICE [...] period is included. Date Time Interrogation Session [id number] CV DEVICE CHECK Type Interrogation Session Remote Scheduled CV DEVICE CHECK Implantable Pulse Generator Assistant Chief Nursing Officer [employer] CV DEVICE CHECK Implantable Pulse Generator Type FRANCHISE BUSINESS CONSULTANT-D CV DEVICE CHECK Implantable Pulse Generator Model 3357-40C Mobile[employer] It Original() CV DEVICE CHECK Implantable Pulse Generator Serial Number [id number] CV DEVICE CHECK Implantable Pulse Generator Implant Date 20221215 CV DEVICE CHECK Battery Remaining Percentage 60.00 CV DEVICE CHECK Battery Remaining Longevity 46.0 CV DEVICE CHECK Battery Voltage 2.960 CV D EVICE CHECK Battery APPEALS ANALYST Trigger 2.590 CV DEVICE CHECK Battery Status Middle of Service CV DEVICE CHECK Capacitor Charge Time 8.300 CV DEVICE CHECK FRANCHISE BUSINESS CONSULTANT Statistic FRANCHISE BUSINESS CONSULTANT Percent Paced 98.00 CV DEVICE CHECK Atrial Tachy Statistic AT/AF [place] Percent 1.00 CV DEVICE CHECK Lead Channel [...] CV DEVICE CHECK Ventricular chambers paced during FRANCHISE BUSINESS CONSULTANT pacing. BiV CV DEVICE CHECK Bryce Setting Lower Rate Limit 70 CV DEVICE CHECK Bryce Setting AT Mode Switch Rate 180 CV DEVICE CHECK Bryce Setting Maximum Sensor Rate 110 CV DEVICE CHECK FRANCHISE BUSINESS CONSULTANT LV-RV Delay 45 CV D EVICE [...] PM EDT Performed at: 01 - [facility] [address] [id number] Roustabout Crew Leader: Joyce Cohen MD, Phone: [phone] Mesha Lima NP LAB BLOOD ORDERABLES Final Resu lt [facility] 1 from Last 3 Months or Most Recently Relevant to Health Maintenance Insurance MEDICARE [facility] Advance Directives Documents on File Type Date Recorded Patient Line Servicer Expl anation Health Care Decision (hx) 01/26/2016 AD BERNARD DIRECTIVE Health Care Decision (hx) 01/26/2016 AD BERNARD DIRECTIVE Health Care Decision (hx) 01/26/2016 AD BERNARD DIRECTIVE Health Care Decision (hx) 01/26/2016 AD BERNARD DIRECTIVE Health Care Decision (hx) 01/26/2016 AD BERNARD DIRECTIVE Health Care Decision (hx) 01/26/2016 AD BERNARD DIRECTIVE Care Teams Orientation And Mobility Specialist Relationship Specialty Start Date End Date Luisito Davenport MD [facility] [place] [address] PCP - General Internal Medicine 05/29/12
[2025-05-15 08:20] LABS: Prothrombin Time Whole Bld POC 33.5 sec (11.1-13.5); ~PT, ~INR - Anti Coag Clinic 2.8 (0.9-1.1)
--- NOTE | 2025-05-15 08:27 | MHC.OFFVISCO ---
Intake Intake Visit Reasons: Anticoagulation Allergies No Known Allergies Allergy (Verified 05/15/25 08:15) Medication List - Last Reconciled 05/15/25 by Celia Sanders, RN acetaminophen 1,000 mg PO .q8 hours PRN aspirin 81 mg PO DAILY atorvastatin (Lipitor) 40 mg PO DAILY ferrous sulfate 325 mg PO DAILY furosemide 60 mg PO QAM furosemide 40 mg PO QPM losartan 25 mg PO DAILY metoprolol succinate ER (Toprol XL) 200 mg PO DAILY omeprazole 40 mg PO DAILY polyethylene glycol 3350 (Miralax) 17 grams PO DAILY PRN sennosides (Senokot) 8.6 mg PO DAILY spironolactone 12.5 mg PO DAILY tamsulosin 0.4 mg PO DAILY warfarin 5 mg See Protocol PO DAILY Nursing Note INR: 2.8 in therapeutic range of 2-3 Medications and supplements reviewed No changes in health, diet, medications, or supplements, Denies any signs and symptoms of bleeding or bruising or clotting. Bleeding, bruising, clotting discussed Nutritional guidance given Dose: 5mg X 6 days and 0mg X 1 day (Sat) F/U INR: 4 weeks Patient verbalizes understanding of instructions given Anti-Coag Initial Assessment Social Hx Patient Tobacco Use Status: Former Tobacco user Tobacco use type: Cigarette and Cigar Alcohol intake frequency: does not drink Cardiovascular Hx: HTN, CHF, Arrhythmias (afib, ), Cardiomyopathy and Other (ashd, aneurysm- thoracic, hld, LBBB) Musculoskeletal Hx: Arthritis (knees, thr right) and Other (sciatica) Blood Disorder Hx: Anemia and Hyperlipidemia GI Hx: Diverticulosis and Other (gerd, colon polyps, pancreatic mass) Hx: Kidney Disease (ckd 3, ) and Prostate (prostatitis) Neurological Hx: Aneurysm (thoracic) Cancer HX: No Psych. 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
== END 2025-05-15 08:29 | disposition home or self-care (01) ==
LOC: HO.ACS 08:01
PROVIDERS: PCP Internal Medicine; Visit Provider Internal Medicine Medical Oncology
DX: Z79.01 Long term (current) use of anticoagulants (principal)

== ENCOUNTER → 2025-05-15 08:01 | Outpatient (BNVA) | payer MEDICARE, SELFPAY | PROVIDERS: PCP Internal Medicine; Visit Provider Internal Medicine Medical Oncology | DX: Z51.81 Encounter for therapeutic drug level monitoring (principal); Z79.01 Long term (current) use of anticoagulants | CPT/HCPCS: 85610; 99211 ==

== ENCOUNTER 2025-05-27 09:08 | Outpatient (REF) | payer MEDICARE, SELFPAY ==
[2025-05-27 13:25] LABS: MANUAL DIFF FLAG NO
[2025-05-27 13:44] LABS: Appearance Urine Clear; Glucose Urine UA Negative (Negative); PH 7.5 (5.0-9.0); Specific Gravity - Urine 1.010 (1.005-1.025)
[2025-05-27 13:46] LABS: Hematocrit 36.6 % (42.0-52.0); Hemoglobin 10.9 g/dl (14.0-18.0); Imm Gran Abs Auto 0.02 X10*3/uL (0.00-0.03); Imm Gran Pct Auto 0.3 % (0.0-0.4); Lymphocytes Absolute Auto 1.6 X10*3/uL (1.2-4.9); Mean Corpuscular HGB Conc 29.8 g/dl (31.0-36.0); Mean Corpuscular Hemoglobin 26.9 pg (27.0-33.0); Mean Corpuscular Volume 90.4 fL (80.0-98.0); NRBC Abs Auto 0.020 X10*3/uL (0.0-0.012); NRBC Pct Auto 0.3 /100WBC (0.0-0.2); Platelet Count 241 X10*3/uL (160-400); Red Blood Count 4.05 X10*6/uL (4.60-5.80); White Blood Count 5.8 X10*3/uL (4.8-10.8)
[2025-05-27 14:16] LABS: Anion Gap 12 (12-20); Blood Urea Nitrogen 23 mg/dL (9-16); Calcium 9.2 mg/dL (8.4-10.2); Carbon Dioxide 28 mmol/L (22-29); Chloride 107 mmol/L (96-108); Estimated Glomerular Filt Rate 46; Potassium 4.1 mmol/L (3.3-5.1); Sodium 143 mmol/L (135-145)
[2025-05-27 14:31] LABS: Parathyroid Hormone Intact 146.9 pg/mL (8.7-77.1)
[2025-05-27 14:44] LABS: Total Protein Urine Random < 7 mg/dL (<12)
[2025-05-29 18:18] LABS: Prot Elec - Albumin 3.8 g/dL (3.8-4.8); Prot Elec - Alpha1 0.3 g/dL (0.2-0.3); Prot Elec - Alpha2 0.8 g/dL (0.5-0.9); Prot Elec - Beta 1 0.4 g/dL (0.4-0.6); Prot Elec - Beta 2 0.3 g/dL (0.2-0.5); Prot Elec - Gamma 0.8 g/dL (0.8-1.7); Prot Elec - Total Protein 6.4 g/dL (6.1-8.1)
== END 2025-05-27 09:09 | disposition home or self-care (01) ==
LOC: HO.HKASLDS 09:08
PROVIDERS: PCP Internal Medicine; Referring Provider Nurse Practitioner Family; Visit Provider Internal Medicine Hypertension Specialist
DX: N18.9 Chronic kidney disease, unspecified (principal)
CPT/HCPCS: 36415; 80048; 81003; 82306; 82570; 83970; 84156; 84165; 85025; 99202

== ENCOUNTER 2025-05-27 09:08 | Outpatient (AMB) | payer MEDICARE, SELFPAY ==
--- NOTE | 2025-05-27 09:24 | HO.NEPHOV_ITS ---
Vital Signs 05/27/25 09:25 05/27/25 09:49 Height 5 ft 9 in Weight 205 lb BMI 30.3 BP 110/50 L 100/60 Blood Pressure Location Lt brachial Lt brachial Position Sitting Standing Pulse 90 Pulse Source Pulse Oximeter Pulse Oximetry (%) 94 Oxygen Delivery Method Room Air Intake Visit Reasons: ENP: CKD,unable to leave Metal Extrusion Supervisor Required: No Accompanied by: Daughter Allergies No Known Allergies Allergy (Verified 05/27/25 09:27) HPI Comments Details: - The patient is an 85-year-old male referred for evalaution of CKD - Chronic Kidney Disease: Kidney function at 46% in August 2024 , recent decline noted. - Anemia: History of anemia, low iron, hospitalized for bleeding, transfused three units of blood. - s/o EGD and ?Gastric Precancerous Lesions: - Atrial Fibrillation: On atenolol and Coumadin. - h/o Thoracic Aortic Aneurysm - Congestive Heart Failure: Managed with furosemide and spironolactone. Currently on Lasix 80 mg Q AM and 60 mg QPM - Hyperlipidemia: Managed with Lipitor. - Sciatica: Experiences sciatica, no pain medication used. History of low vitamin D levels. 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 Lungs entry equal no rales. Heart S1-S2 heard no gallop or rub. Abdomen soft nontender. Neuro alert awake oriented. No asterixis. Extremities Trace edema. 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) Results Reviewed Results Reviewed: Recent eGFR 45 ml/mt Nephrology Results: Hgb, (14.0-18.0) 9.2 g/dl L 04/22/25 WBC, (4.8-10.8) 6.7 X10*3/uL 04/22/25 Plt Count, (160-400) 265 X10*3/uL 04/22/25 Assessment & Plan Assessment & Plan (1) CKD (chronic kidney disease): Code(s): N18.9 - Chronic kidney disease, unspecified Category: Medical Plan Elderly man with a h/o Thoracic aneurysm, CHF with CKD DDX: Age related nephron loss Hypertensive nephrosclerosis Chronic Hypoperfusion No obstruction based on recent imaging GN/IN - less likely but need to rule out Plan: Blood work including serologies/SPEP Urine studies Since BP is relatively low , will decrease LASIX from 80 mg QAM and 60mg PM to 80 mg QAM and 40mg QPM Continue to avoid NSAIDS low salt diet No need for renal sonogram yet ( CT scan 6 months ago showed unremarkable kidneys) Further work up based on outcome of above baseline studies Orders: Orders Complete Blood Count Auto Diff Today N18.9 - Chronic kidney disease, unspecified Basic Metabolic Panel Today N18.9 - Chronic kidney disease, unspecified Total Protein Urine Random Today N18.9 - Chronic kidney disease, unspecified UA and rflx microscopic Today N18.9 - Chronic kidney disease, unspecified Vitamin D 25-OH Total Today N18.9 - Chronic kidney disease, unspecified Parathyroid Hormone Intact Today N18.9 - Chronic kidney disease, unspecified Creatinine Urine Today N18.9 - Chronic kidney disease, unspecified Protein Electrophoresis, Serum Today N18.9 - Chronic kidney disease, unspecified Coding Level of Care Code New Pt Level 5 (95728) Diagnoses CKD (chronic kidney disease) N18.9 Time Spent (min) 45
[2025-05-27 09:25] VITALS: BP 110/50; PULSE 90; O2SAT 94; BMI 30.3
[2025-05-27 09:49] VITALS: BP 100/60
== END 2025-05-27 09:51 | disposition home or self-care (01) ==
LOC: HO.HKAS 09:09
PROVIDERS: PCP Internal Medicine; Referring Provider Nurse Practitioner Family; Visit Provider Internal Medicine Hypertension Specialist
DX: N18.9 Chronic kidney disease, unspecified (principal)
CPT/HCPCS: 99204

== ENCOUNTER → 2025-06-12 07:59 | Outpatient (BNVA) | payer MEDICARE, SELFPAY | PROVIDERS: PCP Internal Medicine; Visit Provider Internal Medicine Medical Oncology | DX: I48.91 Unspecified atrial fibrillation (principal); Z51.81 Encounter for therapeutic drug level monitoring; Z79.01 Long term (current) use of anticoagulants | CPT/HCPCS: 85610; 99211 ==

== ENCOUNTER 2025-06-24 08:17 | Outpatient (AMB) | payer MEDICARE, SELFPAY ==
--- OUTSIDE RECORDS SUMMARY | 2025-02-11 10:00 | XMS_ITS | Continuity of Care Document ---
Author Organization [facility] Address [address] [place] [address] Phone Care Team Providers Care Tree Topper Name Role Phone Maynor MAY, JI, BRI, Michael Unavailable U navailable Procedures Procedure Date Duplex Scan-extrem Veins; Uni/ CT & [place] J Advance Directives Directive Yes / No Effective Date File Name No Information Encounters Encounter Description Practice Location Reason(s) For Visit Diagnoses Date Provider Providers Copied on Encounter [facility], [address], [place], [id number], [place] tel:[phone] CVR - [place] Pain in right leg 5 Maynor MAY, JI, BRI Rodriguez. [address], [address], [place], [place], [id number] , [place]. tel:[phone] Referring Provider: Ely Kidd MD, [address], [place], [address]. tel:[phone] Family History Family Member Type Diagnosis Age At Onset No Information Payers Payer name Insurance type Covered alliance party ID Authoriza tion(s) Medicare HEATHER MONTES [id number] [facility] AARP Supplement CI [id number] 1 Social History Type Description Quantity Date Captured Comments Sex Male Smoking Status No Information Chief Complaint And Reason For Visit No Information Reason For Referral Reason For Referral No Information History Of Present Illness Encounter Date Complaint History Of Prese nt Illness No Information Functional Status Date Functional Assessmen t No Information Instructions Date Instruction Additional Infor mation No Information Assessments Type Assessment Date No Information Patient Care Teams Name Effective Dates (start - stop) Status Members No Information
--- OUTSIDE RECORDS SUMMARY | 2025-06-24 08:24 | XMS_ITS | Clinical Summary ---
Author Organization [address] [facility] Address [address] [place] [address] Phone Care Team Providers Care Him Manager Name Role Phone Luisito Davenport MD Primary Care Provider [phone] Allergies No known active allergies Medications aspirin [...] warfarin (COUMADIN) 1 mg tablet Managed by [facility] coumadin clinic Active spironolactone (ALDACTONE) 25 mg [...] Problem Noted Date Diagnosed Date Nonischemic cardiomyopathy ([facility] V24, [facility] V28) 01/09/2025 CAD (coronary [...] on current dose statin. Continue Atrial fibrillation ([facility] V24, [facility] V28) 1 Overview (01/15/2025): [...] team for Watchman evaluation. Aortic aneurysm, thoracic ([facility] V24) 09/13/19 21 Overview [...] Overview (01/15/2025): - Recovered LVEF status post SPLITTER HAND-D -Most recent echocardiogram 12/2022 showing normal LV [...] Encounters Date Type Department Care Team Description 06/11/2025 9:25 AM EDT Ancillary Procedure [facility] [address] [place] [address] 05/19/2025 7:30 PM EDT Ancillary Procedure [facility] [address] [place] [address] 05/06/2025 11:20 AM EDT Office Visit [facility] [address] [place] [address] Mesha Lima NP Aneurysm of ascending aorta without rupture (CMS/HCC V24) (Primary Dx); Longstanding persistent atrial fibrillation (CMS/HCC V24, CMS/HCC V28); Coronary artery disease involving salamatof coronary artery of salamatof heart without angina pectoris; Chronic heart failure with preserved ejection fraction (HFpEF) (CMS/HCC V24, CMS/HCC V28); Primary hypertension; Pure hypercholesterolemia 04/27/2025 8:00 AM EDT Ancillary Procedure [facility] [address] [place] [address] Encounter for adjustment or management of cardiac device 04/01/2025 10:30 PM EDT Ancillary Procedure [facility] [address] [facility] [address] [place] [address] from Last 3 Months Surgical History Surgery [...] Description 08/05/2025 7:40 AM EST Office Visit [facility]iology [facility] [address] [place] [address] Mesha Lima NP [address] [place] [address] [place] [address] 04/29/2026 8:00 AM EDT Ancillary Procedure [facility] [address] [facility] [address] [place] [address] Health Maintenance Due Date Last Done Comments [...] this topic Medical Devices Implanted Type Area Mobile Paramedical Examiner Device Identifier Shelf Expiration Date Model / Serial / Lot Abbt-Stju 3357-40c Unify Assura(Tm) [id number] Implanted:11/19 (Quantity not on file) Cardiac SPLITTER HAND-D ICD [facility] 3357-40C UNIFY ASSURA(TM) / [id number] / Abbt-Stju Unify Assura [id number] Implanted:11/19 (Quantity not on file) Cardiac SPLITTER HAND-D ICD [facility] UNIFY ASSURA 3357-40C / [id number] / Procedures Procedure Name Priority Date/Time Associated Diagnosis Comments CARDIAC DEVICE CHECK- REMOTE- MURJ Routine 06/11/2025 9:21 AM EDT EXTERNAL CLINICAL LAB Routine 05/27/2025 3:06 PM EDT CARDIAC DEVICE CHECK- REMOTE- MURJ Routine 05/19/2025 7:26 PM EDT CARDIAC DEVICE CHECK- IN CLINIC- MURJ Routine 04/27/2025 9:04 AM EDT Encounter for adjustment or management of cardiac device CARDIAC DEVICE CHECK- REMOTE- MURJ Routine 04/01/2025 10:27 PM EDT BASIC METABOLIC PANEL Routine 01/23/2025 7:16 AM EDT Chronic heart failure with preserved ejection fraction (HFpEF) (CMS/HCC V24, CMS/HCC V28) from Last 3 Months or Most Recently Relevant to Health Maintenance Results * Cardiac device check - Remote- MURJ (06/11/2025 9:21 AM EDT) Only the most recent of3 resultswithin the time period is included. Date Time Interrogation Session [id number] CV DEVICE CHECK Type Interrogation Session Remote Scheduled CV DEVICE CHECK Implantable Pulse Generator Mobile Paramedical Examiner [employer] CV DEVICE CHECK Implantable Pulse Generator Type SPLITTER HAND-D CV DEVICE CHECK Implantable Pulse Generator Model 3357-40C Nikko Mcgee(TM) CV DEVICE CHECK Implantable Pulse Generator Serial Number [id number] CV DEVICE CHECK Implantable Pulse Generator Implant Date 20221215 CV DEVICE CHECK Battery Remaining Percentage 59.00 CV DEVICE CHECK Battery Remaining Longevity 44.0 CV DEVICE CHECK Battery Voltage 2.960 CV D EVICE CHECK Battery ORACLE DATABASE CONSULTANT Trigger 2.590 CV DEVICE CHECK Battery Status Middle of Service CV DEVICE CHECK Capacitor Charge Time 8.300 CV DEVICE CHECK SPLITTER HAND Statistic SPLITTER HAND Percent Paced 98.00 CV DEVICE CHECK Atrial Tachy Statistic AT/AF Neche Percent 1.00 CV DEVICE CHECK Lead Channel Sensing Intrinsic Amplitude 0.300 CV DEVICE CHECK Lead Channel Setting Sensing Sensitivity 0.30 CV DEVICE CHECK Lead Channel Impedance Value 340 CV DEVICE CHECK Lead Channel Sensing Intrinsic Amplitude 11.800 CV DEVICE CHECK Lead Channel Setting Sensing Sensitivity 0.50 CV DEVICE CHECK Lead Channel Impedance Value 360 CV DEVICE CHECK Lead Channel Pacing Threshold Amplitude 0.875 CV DEVICE CHECK Lead Channel Pacing Threshold Pulse Width 0.5 CV DEVICE CHECK Lead Channel RV Pacing Threshold Date 2025-05-31 CV DEVICE CHECK Lead Channel Setting Pacing Amplitude 2.000 CV DEVICE CHECK Lead Channel Setting Pacing Pulse Width 0.5 CV DEVICE CHECK Lead Channel Impedance Value 310 CV DEVICE CHECK Lead Channel Setting Pacing Amplitude 1.750 CV DEVICE CHECK Lead Channel Setting Pacing Pulse Width 1.0 CV DEVICE CHECK Bryce Setting Mode (NBG Code) VVIR CV DEVICE CHECK Ventricular chambers paced during SPLITTER HAND pacing. BiV CV DEVICE CHECK Bryce Setting Lower Rate Limit 70 CV DEVICE CHECK Bryce Setting AT Mode Switch Rate 180 CV DEVICE CHECK Bryce Setting Maximum Sensor Rate 110 CV DEVICE CHECK SPLITTER HAND LV-RV Delay 45 CV D EVICE CHECK Therapy Statistic Recent Shocks Delivered 0 CV DEVICE CHECK Therapy Statistic Recent Shocks Aborted 0 CV DEVICE CHECK Therapy Statistic Recent ATP Delivered 0 CV DEVICE CHECK Shock Measured Impedance 45 CV DEVICE CHECK Zone Setting Type Category [...] 3 CV DEVICE CHECK Date of Service 2025-07-28 CV DEVICE CHECK Anatomical Region Laterality Modality Device Interroga tion 05/31/2025 2:00 AM EDT Impressions 06/11/2025 7:47 AM EDT Heart Failure Diagnostic: Stable * Heart failure diagnostics assessed through the device * Status: Stable * No overt HF present Narrative Procedure Note Jair Craig MD - 06/11/2025 IMPRESSION: Heart Failure Diagnostic: Stable * Heart failure diagnostics assessed through the device * Status: Stable * No overt HF present us Jair Craig MD CV IMPLANTABLE CARDIAC DEVICE PROCEDURES Final Result * External clinical lab (05/27/2025 3:06 PM EDT) Historical Provider LAB BLOOD ORDERABLES Lisa l Result * CARDIAC DEVICE CHECK- IN CLINIC- [facility] (04/27/2025 9:04 AM EDT) Date Time Interrogation Session [id number] CV DEVICE CHECK Implantable Pulse Generator Mobile Paramedical Examiner [employer] CV DEVICE CHECK Implantable Pulse Generator Type SPLITTER HAND-D CV DEVICE CHECK Implantable Pulse Generator Model Unify Assura 3357-40C CV DEVICE CHECK Implantable Pulse Generator Serial Number [id number] CV DEVICE CHECK Implantable Pulse Generator Implant Date 20221215 CV DEVICE CHECK Battery Status Middle of Service CV DEVICE CHECK SPLITTER HAND Statistic SPLITTER HAND Percent Paced 98.00 CV DEVICE CHECK Lead [...] CV DEVICE CHECK Ventricular chambers paced during SPLITTER HAND pacing. LV -> RV CV DEVICE CHECK Bryce Setting Lower Rate Limit 70 CV DEVICE CHECK Bryce Setting AT Mode Switch Rate 180 CV DEVICE CHECK Bryce Setting Maximum Sensor Rate 110 CV DEVICE CHECK SPLITTER HAND LV-RV Delay 45 CV D EVICE CHECK [...] CAR DIAC DEVICE PROCEDURES Final Result * (ABNORMAL) Basic metabolic panel (01/23/2025 7:16 AM EDT) Pathologist [facility] [...] 11:06 PM EDT Performed at: 01 - [facility] [id number] Clinical Allergist: Joyce Cohen MD, Phone: [phone] Mesha Lima NP LAB BLOOD ORDERABLES Final Resu lt [facility] 1 from Last 3 Months or Most Recently Relevant to Health Maintenance Insurance MEDICARE [facility] Advance Directives Documents on File Type Date Recorded 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
[2025-06-24 08:32] VITALS: BP 112/56; PULSE 81; O2SAT 96; BMI 30.3
--- NOTE | 2025-06-24 08:32 | HO.NEPHOV ---
Vital Signs 06/24/25 08:32 Height 5 ft 9 in Weight 205 lb BMI 30.3 BP 112/56 L Blood Pressure Location Lt brachial Position Sitting Pulse 81 Pulse Source Pulse Oximeter Pulse Oximetry (%) 96 Oxygen Delivery Method Room Air Intake Visit Reasons: 4weeks, confirmed Transportation Department Head Required: No Accompanied by: Daughter Allergies No Known Allergies Allergy (Verified 06/24/25 08:35) Medication List - Last Reconciled 06/24/25 by Marcin Strong MD acetaminophen 1,000 mg PO .q8 hours PRN aspirin 81 mg PO DAILY atorvastatin (Lipitor) 40 mg PO DAILY docusate sodium 100 mg PO DAILY ferrous sulfate 325 mg PO DAILY furosemide 80 mg PO QAM furosemide 60 mg PO QPM losartan 25 mg PO DAILY metoprolol succinate ER (Toprol XL) 200 mg PO DAILY omeprazole 40 mg PO DAILY polyethylene glycol 3350 (Miralax) 17 grams PO DAILY PRN sennosides (Senokot) 8.6 mg PO DAILY spironolactone 12.5 mg PO DAILY tamsulosin 0.4 mg PO DAILY warfarin 5 mg See Protocol PO DAILY HPI Comments Details: - The patient is an 85-year-old male referred for evalaution of CKD - Chronic Kidney Disease: Kidney function at 46% in August 2024 , recent decline noted. - Anemia: History of anemia, low iron, hospitalized for bleeding, transfused three units of blood. - s/o EGD and ?Gastric Precancerous Lesions: - Atrial Fibrillation: On atenolol and Coumadin. - h/o Thoracic Aortic Aneurysm - Congestive Heart Failure: Managed with furosemide and spironolactone. Currently on Lasix 80 mg Q AM and 40 mg QPM - Hyperlipidemia: Managed with Lipitor. - Sciatica: Experiences sciatica, no pain medication used. History of low vitamin D levels. h/o 60 lbs weight loss with diet 06/24/25 The patient is an 85-year-old male presenting with chronic conditions management, primarily hypertension and chronic kidney disease. His blood pressure was recorded at 112/56 mmHg, which is an improvement from previous visits where it was noted to be lower. The patient is currently on furosemide, losartan, and spironolactone for blood pressure management. The patient's kidney function is stable at approximately 46%, managed with diuretics under the supervision of a recycling center operator. The patient has been on the current dose of furosemide for a long time, with a recent decision to reduce the dose due to stable blood pressure readings. The patient reports a history of sciatica, which has been affecting his mobility for the past four to five months. He experienced an injury that exacerbated the condition, but no fractures were noted. The patient has a vitamin D deficiency and has been advised to take 400 units daily to improve levels. 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 Lungs entry equal no rales. Heart S1-S2 heard no gallop or rub. Abdomen soft nontender. Neuro alert awake oriented. No asterixis. Extremities Trace edema. 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) Results Reviewed Nephrology Results: Hgb, (14.0-18.0) 10.9 g/dl L 05/27/25 WBC, (4.8-10.8) 5.8 X10*3/uL 05/27/25 Plt Count, (160-400) 241 X10*3/uL 05/27/25 Sodium, (135-145) 143 mmol/L 05/27/25 Potassium, (3.3-5.1) 4.1 mmol/L 05/27/25 Chloride, (96-108) 107 mmol/L 05/27/25 Carbon Dioxide, (22-29) 28 mmol/L 05/27/25 BUN, (9-16) 23 mg/dL H 05/27/25 Creatinine, (0.5-1.4) 1.45 mg/dL H 05/27/25 Calcium, (8.4-10.2) 9.2 mg/dL 05/27/25 PTH Intact, (8.7-77.1) 146.9 pg/mL H 05/27/25 Urine Protein, (Neg-Trace) Negative mg/dL 05/27/25 Urine Creatinine 23.80 mg/dL 05/27/25 Assessment & Plan Assessment & Plan (1) CKD (chronic kidney disease): Code(s): N18.9 - Chronic kidney disease, unspecified Category: Medical Plan Elderly man with a h/o Thoracic aneurysm, CHF with CKD DDX: Age related nephron loss Hypertensive nephrosclerosis Chronic Hypoperfusion No obstruction based on recent imaging GN/IN - less likely but need to rule out No proteinuria Mild stable anemia No indication for Epogen yet BP is relatively low ~ will decrease LASIX to 40 mg BID Continue to avoid NSAIDS Add Vit D 400 U daily low salt diet No need for renal sonogram yet ( CT scan 6 months ago showed unremarkable kidneys) Orders: Orders Complete Blood Count no Diff 3 Months N18.9 - Chronic kidney disease, unspecified Basic Metabolic Panel 3 Months N18.9 - Chronic kidney disease, unspecified Medications: New cholecalciferol (vitamin D3) 10 mcg PO DAILY 90 caps 3RF Changed From furosemide 80 mg PO QAM To furosemide 40 mg PO BID Coding Level of Care Code Est Pt Level 4 (46559) Diagnoses CKD (chronic kidney disease) N18.9
== END 2025-06-24 08:54 | disposition home or self-care (01) ==
LOC: HO.HKAS 08:18
PROVIDERS: PCP Internal Medicine; Visit Provider Internal Medicine Hypertension Specialist
DX: N18.9 Chronic kidney disease, unspecified (principal)
CPT/HCPCS: 99214

== ENCOUNTER → 2025-06-24 08:17 | Outpatient (BNVA) | payer MEDICARE, SELFPAY | PROVIDERS: PCP Internal Medicine; Visit Provider Internal Medicine Hypertension Specialist | DX: I12.9 Hypertensive chronic kidney disease with stage 1 through stage 4 chronic kidney disease, or unspecified chronic kidney disease (principal); N18.9 Chronic kidney disease, unspecified; Z87.891 Personal history of nicotine dependence; Z79.82 Long term (current) use of aspirin; Z79.01 Long term (current) use of anticoagulants | CPT/HCPCS: 99212 ==

== ENCOUNTER 2025-07-10 07:57 | Outpatient (AMB) | payer MEDICARE, SELFPAY ==
--- OUTSIDE RECORDS SUMMARY | 2025-02-11 10:00 | XMS_ITS | Continuity of Care Document ---
Author Organization [facility] Address [address] [place] [address] Phone Care Team Providers Care Forklift Material Handler Name Role Phone Maynor MAY, JI, BRI, Michael Unavailable U navailable Procedures Procedure Date Duplex Scan-extrem Veins; Uni/ CT & [place] J Advance Directives Directive Yes / No Effective Date File Name No Information Encounters Encounter Description Practice Location Reason(s) For Visit Diagnoses Date Provider Providers Copied on Encounter [facility], [address], [place], [id number], [place] tel:[phone] CVR - [place] Pain in right leg 5 Maynor MAY, JI, BRI Rodriguez. [address], [address], [place], [place], [id number] , [place]. tel:[phone] Referring Provider: Ely Kidd MD, [address], [place], [address]. tel:[phone] Family History Family Member Type Diagnosis Age At Onset No Information Payers Payer name Insurance type Covered constitution party ID Authoriza tion(s) Medicare HEATHER MONTES [id number] [facility] AARP Supplement CI [id number] 1 Social History Type Description Quantity Date [...]
--- OUTSIDE RECORDS SUMMARY | 2025-07-10 07:59 | XMS_ITS | Clinical Summary ---
Author Organization [address] [facility] Address [address] [place] [address] Phone Care Team Providers Care Fire Official Name Role Phone Luisito Davenport MD Primary Care Provider [phone] Allergies No known active allergies Medications aspirin 81 mg EC tablet Take 81 mg by mouth daily. Active omeprazole (PriLOSEC) [address] capsule Take 1 Capsule by mouth daily. Active tamsulosin (FLOMAX) 0.4 mg 24 hr capsule Take 0.4 mg by mouth daily. Take 30 mins after same meal every day. Active warfarin (COUMADIN) 1 mg tablet Managed by [facility] coumadin clinic Active losartan (COZAAR) 50 mg tablet Take 0.5 tablets (25 mg total) by mouth 1 (one) time each day. 90 tablet 1 12/09/19 25 Active furosemide (LASIX) 40 mg tablet Take [...] 1 TABLET EVERY DAY 90 tablet 3 01/30/20 25 Active Farxiga 10 mg tablet Take 1 tablet (10 mg total) by mouth 1 (one) time each day. 90 tablet 3 02/06/20 25 Active Additional Information Patient not taking.Reported on 05/06/2025 spironolacton e (ALDACTONE) 25 mg tablet Take 0.5 tablets (12.5 mg total) by mouth 1 (one) time each day. 15 tablet 1 06/27/20 25 Active furosemide (LASIX) 40 mg tablet Take 1 tablet (40 mg total) by mouth 2 (two) times a day. 60 tablet 1 06/27/20 25 Active metoprolol succinate (TOPROL-XL) 200 mg 24 hr tablet TAKE 1 TABLET EVERY DAY 90 tablet 3 06/29/20 25 Active metoprolol succinate (TOPROL-XL) 200 mg 24 hr tablet TAKE 1 TABLET EVERY DAY 06/16/20 24 025 Discontinued spironolacton e (ALDACTONE) 25 mg tablet TAKE 1/2 TABLET EVERY DAY 45 tablet 3 09/10/19 25 025 Discontinued(Re order) furosemide (LASIX) 40 mg tablet TAKE 2 TABLETS EVERY MORNING AND TAKE 1 TABLET IN AFTERNOON 270 tablet 3 09/10/19 25 025 Discontinued(Pr escriber Discontinued) furosemide (LASIX) 40 mg tablet Take 1 tablet (40 mg total) by mouth 2 (two) times a day. 180 tablet 3 06/27/20 25 025 Discontinued(Re order) spironolacton e (ALDACTONE) 25 mg tablet Take 0.5 tablets (12.5 mg total) by mouth 1 (one) time each day. 45 tablet 3 06/27/20 25 025 Discontinued(Re order) Active Problems Problem Noted Date Diagnosed Date Nonischemic cardiomyopathy (CMS/HCC V24, CMS/HCC V28) 01/09/2025 CAD (coronary artery disease) 11/08/2022 [...] on current dose statin. Continue Atrial fibrillation (CMS/HCC V24, CMS/HCC V28) 1 Overview (01/15/2025): - Unsuccessful cardioversion [...] team for Watchman evaluation. Aortic aneurysm, thoracic ([facility] V24) 09/13/19 Overview (01/15/2025): Followed [...] failure with p reserved ejection fraction (HFpEF) ([facility] V24, [facility] V28) 09/13/2020 Overview (01/15/2025): - Recovered LVEF status post VP TREASURER-D -Most recent echocardiogram 12/2022 showing normal LV [...] Encounters Date Type Department Care Team Description 07/03/2025 10:20 PM EST Ancillary Procedure [facility] - [address] [place] [address] 07/01/2025 Telephone [facility] - [address] [place] [address] Jair Craig MD 06/27/2025 Telephone [facility] - [address] [place] [address] Mesha Lima NP 06/11/2025 9:25 AM EDT Ancillary Procedure [facility] - [address] [place] [address] 05/19/2025 7:30 PM EDT Ancillary Procedure [facility] - [address] [place] [address] 05/06/2025 11:20 AM EDT Office Visit [facility] - [address] [place] [address] Mesha Lima NP Aneurysm of ascending aorta without rupture (CMS/HCC V24) (Primary Dx); Longstanding persistent atrial fibrillation (CMS/HCC V24, CMS/HCC V28); Coronary artery disease involving [place] coronary artery of [place] heart without angina pectoris; Chronic heart failure with preserved ejection fraction (HFpEF) (CMS/HCC V24, CMS/HCC V28); Primary hypertension; Pure hypercholesterolemia 04/27/2025 8:00 AM EDT Ancillary Procedure [facility] - [address] [place] [address] Encounter for adjustment or management of cardiac device from Last 3 Months Surgical History Surgery [...] Description 08/05/2025 7:40 AM EST Office Visit [facility] - [address] [facility] [address] [place] [address] Mesha Lima NP [address] [place] [address] [place] [address] 04/29/2026 8:00 AM EDT Ancillary Procedure [facility] [address] [facility] [address] [place] [id number] Health Maintenance Due Date Last Done Comments [...] this topic Medical Devices Implanted Type Area Strategic Partnership Specialist Device Identifier Shelf Expiration Date Model / Serial / Lot Ayaz-Bayron 3357-40c Nikko Mcgee(Tm) [id number] Implanted:11/19 (Quantity not on file) Cardiac VP TREASURER-D ICD [facility] 0087-40C NIKKO MCGEE(TM) / [id number] / Abbt-Stju Omazefy Assmary [id number] Implanted:11/19 (Quantity not on file) Cardiac VP TREASURER-D ICD [facility] 3357-40C / [id number] / Procedures Procedure Name Priority Date/Time Associated Diagnosis Comments CARDIAC DEVICE CHECK- REMOTE- MURJ Routine 07/03/2025 10:15 PM EST CARDIAC DEVICE CHECK- REMOTE- MURJ Routine 06/11/2025 9:21 AM EDT EXTERNAL CLINICAL LAB Routine 05/27/2025 3:06 PM EDT CARDIAC DEVICE CHECK- REMOTE- MURJ Routine 05/19/2025 7:26 PM EDT CARDIAC DEVICE CHECK- IN CLINIC- MURJ Routine 04/27/2025 9:04 AM EDT Encounter for adjustment or management of cardiac device BASIC METABOLIC PANEL Routine 01/23/2025 7:16 AM EDT Chronic heart failure with preserved ejection fraction (HFpEF) (CMS/HCC V24, CMS/HCC V28) from Last 3 Months or Most Recently Relevant to Health Maintenance Results * Cardiac device check - Remote- MURJ (07/03/2025 10:15 PM EST) Only the most recent of3 resultswithin the time period is included. Date Time Interrogation Session [id number] CV DEVICE CHECK Type Interrogation Session Remote Scheduled CV DEVICE CHECK Implantable Pulse Generator Strategic Partnership Specialist [employer] CV DEVICE CHECK Implantable Pulse Generator Type VP TREASURER-D CV DEVICE CHECK Implantable Pulse Generator Model 3357-40C OmazeCode Blue(TM) CV DEVICE CHECK Implantable Pulse Generator Serial Number [id number] CV DEVICE CHECK Implantable Pulse Generator Implant Date 20221215 CV DEVICE CHECK Battery Remaining Percentage 57.00 CV DEVICE CHECK Battery Remaining Longevity 42.0 CV DEVICE CHECK Battery Voltage 2.960 CV D EVICE CHECK Battery LABOR OPERATOR Trigger 2.590 CV DEVICE CHECK Battery Status Middle of Service CV DEVICE CHECK Capacitor Charge Time 8.300 CV DEVICE CHECK VP TREASURER Statistic VP TREASURER Percent Paced 99.00 CV DEVICE CHECK Atrial Tachy Statistic AT/AF [place] Percent 1.00 CV DEVICE CHECK Lead Channel Sensing Intrinsic Amplitude 0.300 CV DEVICE CHECK Lead Channel Setting Sensing Sensitivity 0.30 CV DEVICE CHECK Lead Channel Impedance Value 340 CV DEVICE CHECK Lead Channel Sensing Intrinsic Amplitude 11.800 CV DEVICE CHECK Lead Channel Setting Sensing Sensitivity 0.50 CV DEVICE CHECK Lead Channel Impedance Value 340 CV DEVICE CHECK Lead Channel Pacing Threshold Amplitude 0.875 CV DEVICE CHECK Lead Channel Pacing Threshold Pulse Width 0.5 CV DEVICE CHECK Lead Channel RV Pacing Threshold Date 2025-07-01 CV DEVICE CHECK Lead Channel Setting Pacing Amplitude 2.000 CV DEVICE CHECK Lead Channel Setting Pacing Pulse Width 0.5 CV DEVICE CHECK Lead Channel Impedance Value 290 CV DEVICE CHECK Lead Channel Setting Pacing Amplitude 1.750 CV DEVICE CHECK Lead Channel Setting Pacing Pulse Width 1.0 CV DEVICE CHECK Bryce Setting Mode (NBG Code) VVIR CV DEVICE CHECK Ventricular chambers paced during VP TREASURER pacing. BiV CV DEVICE CHECK Bryce Setting Lower Rate Limit 70 CV DEVICE CHECK Bryce Setting AT Mode Switch Rate 180 CV DEVICE CHECK Bryce Setting Maximum Sensor Rate 110 CV DEVICE CHECK VP TREASURER LV-RV Delay 45 CV D EVICE CHECK Therapy Statistic Recent Shocks Delivered 0 CV DEVICE CHECK Therapy Statistic Recent Shocks Aborted 0 CV DEVICE CHECK Therapy Statistic Recent ATP Delivered 0 CV DEVICE CHECK Shock Measured Impedance 39 CV DEVICE CHECK Zone Setting Type Category [...] Anatomical Region Laterality Modality Device Interroga tion 07/01/2025 6:13 AM EST Impressions 07/03/2025 5:10 PM EST Heart Failure Diagnostic: Elevated Forwarded to triage to evaluate for HF * Heart failure diagnostics assessed through the device * Status: Elevated * Thoracic Impedance dropped below reference line. Narrative Procedure Note Jair Craig MD - 07/03/2025 IMPRESSION: Heart Failure Diagnostic: Elevated Forwarded to triage to evaluate for HF * Heart failure diagnostics assessed through the device * Status: Elevated * Thoracic Impedance dropped below reference line. us Jair Craig MD CV IMPLANTABLE CARDIAC DEVICE PROCEDURES Final Result * External clinical lab (05/27/2025 3:06 PM EDT) us Historical Provider LAB BLOOD ORDERABLES Lisa l Result * CARDIAC DEVICE CHECK- [place] [facility] [place] (04/27/2025 9:04 AM EDT) Date Time Interrogation Session [id number] CV DEVICE CHECK Implantable Pulse Generator Strategic Partnership Specialist [employer] CV DEVICE CHECK Implantable Pulse Generator Type VP TREASURER-D CV DEVICE CHECK Implantable Pulse Generator Model Unify Assura 3357-40C CV DEVICE CHECK Implantable Pulse Generator Serial Number [id number] CV DEVICE CHECK Implantable Pulse Generator Implant Date 20221215 CV DEVICE CHECK Battery Status Middle of Service CV DEVICE CHECK VP TREASURER Statistic VP TREASURER Percent Paced 98.00 CV DEVICE CHECK Lead [...] CV DEVICE CHECK Ventricular chambers paced during VP TREASURER pacing. LV -> RV CV DEVICE CHECK Bryce Setting Lower Rate Limit 70 CV DEVICE CHECK Bryce Setting AT Mode Switch Rate 180 CV DEVICE CHECK Bryce Setting Maximum Sensor Rate 110 CV DEVICE CHECK VP TREASURER LV-RV Delay 45 CV D EVICE CHECK [...] PM EDT Performed at: 01 - [facility] [address] [id number] Plumbing Service Technician: Joyce Cohen MD, Phone: [phone] us Mesha Lima NP LAB BLOOD ORDERABLES Final Resu lt [facility] 1 from Last 3 Months or Most Recently Relevant to Health Maintenance Insurance [facility]ICARE 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
[2025-07-10 08:14] LABS: Prothrombin Time Whole Bld POC 45.3 sec (11.1-13.5); ~PT, ~INR - Anti Coag Clinic 3.8 (0.9-1.1)
--- NOTE | 2025-07-10 08:23 | MHC.OFFVISCO ---
Intake Intake Visit Reasons: Anticoagulation Allergies No Known Allergies Allergy (Verified 07/10/25 08:16) Medication List - Last Reconciled 07/10/25 by Jess Chavarria RN acetaminophen 1,000 mg PO .q8 hours PRN aspirin 81 mg PO DAILY atorvastatin (Lipitor) 40 mg PO DAILY cholecalciferol (vitamin D3) 10 mcg PO DAILY docusate sodium 100 mg PO DAILY ferrous sulfate 325 mg PO DAILY furosemide (Lasix) 120 mg PO DAILY losartan 25 mg PO DAILY metoprolol succinate ER (Toprol XL) 200 mg PO DAILY omeprazole 40 mg PO DAILY polyethylene glycol 3350 (Miralax) 17 grams PO DAILY PRN sennosides (Senokot) 8.6 mg PO DAILY spironolactone 12.5 mg PO DAILY tamsulosin 0.4 mg PO DAILY warfarin 5 mg See Protocol PO DAILY Nursing Note NO CP,SOB,DIET/MED CHANGES,FALLS OR SX OF BLEEDING. HOLD WARFARIN TODAY, 2MGM TOMORROW THEN RESUME USUAL DOSE ANDF FOLLOW-UP IN 2 WEEKS GOOD UNDERSTANDING OF DOSING INSTR. Anti-Coag Initial Assessment Social Hx Patient Tobacco Use Status: Former Tobacco user Tobacco use type: Cigarette and Cigar Alcohol intake frequency: does not drink Cardiovascular Hx: HTN, CHF, Arrhythmias (afib, ), Cardiomyopathy and Other (ashd, aneurysm- thoracic, hld, LBBB) Musculoskeletal Hx: Arthritis (knees, thr right) and Other (sciatica) Blood Disorder Hx: Anemia and Hyperlipidemia GI Hx: Diverticulosis and Other (gerd, colon polyps, pancreatic mass) Hx: Kidney Disease (ckd 3, ) and Prostate (prostatitis) Neurological Hx: Aneurysm (thoracic) Cancer HX: No Psych. Illness/Depression: Yes (hx depression) Coding Level of Care Code Est Patient Level 1 Diagnoses Current use of anticoagulant therapy Z79.01 Assessment & Plan Assessment & Plan (1) Current use of anticoagulant therapy: Code(s): Z79.01 - penitentiary (current) use of anticoagulants Category: Medical
== END 2025-07-10 08:26 | disposition home or self-care (01) ==
LOC: HO.ACS 07:57
PROVIDERS: PCP Internal Medicine; Visit Provider Internal Medicine Medical Oncology
DX: Z79.01 Long term (current) use of anticoagulants (principal)

== ENCOUNTER → 2025-07-10 07:57 | Outpatient (BNVA) | payer MEDICARE, SELFPAY | PROVIDERS: PCP Internal Medicine; Visit Provider Internal Medicine Medical Oncology | DX: I48.91 Unspecified atrial fibrillation (principal); Z51.81 Encounter for therapeutic drug level monitoring; Z79.01 Long term (current) use of anticoagulants | CPT/HCPCS: 85610; 99211 ==

== ENCOUNTER 2025-07-24 08:26 | Outpatient (AMB) | payer MEDICARE, SELFPAY ==
--- NOTE | 2025-07-24 08:46 | MHC.OFFVISCO ---
Intake Intake Visit Reasons: Anticoagulation Allergies No Known Allergies Allergy (Verified 07/24/25 08:27) Medication List - Last Reconciled 07/24/25 by Eunice Guzman RN acetaminophen 1,000 mg PO .q8 hours PRN aspirin 81 mg PO DAILY atorvastatin (Lipitor) 40 mg PO DAILY cholecalciferol (vitamin D3) 10 mcg PO DAILY docusate sodium 100 mg PO DAILY ferrous sulfate 325 mg PO DAILY furosemide (Lasix) 120 mg PO DAILY losartan 25 mg PO DAILY metoprolol succinate ER (Toprol XL) 200 mg PO DAILY omeprazole 40 mg PO DAILY polyethylene glycol 3350 (Miralax) 17 grams PO DAILY PRN sennosides (Senokot) 8.6 mg PO DAILY spironolactone 12.5 mg PO DAILY tamsulosin 0.4 mg PO DAILY warfarin 5 mg See Protocol PO DAILY Nursing Note INR 3.5 out of therapeutic range Medications and supplements reviewed Patient status: S/P THANKSGIVING, EATING LESS BECAUSE DAUGHTER ON A WEIGHT LOSS PROGRAM TO LOOSE A FEW HUNDRED LBS Medications or supplements: NO CHANGES Diet: EATING LESS BECAUSE DUAGHTER ON WEIGHT LOSS PROGRAM Denies any signs and symptoms of bleeding or clotting or unusual bruising Bleeding, bruising, clotting discussed Nutritional guidance given: RESUME EATING A MIX OF FRUITS AND VEGETABLES YOU ENJOY Dose: HOLD TODAY THEN DECREASE TO 4MG DAILY F/U INR Date : 1 WEEK ?? Patient verbalizing understanding of instructions given. Anti-Coag Initial Assessment Social Hx Patient Tobacco Use Status: Former Tobacco user Tobacco use type: Cigarette and Cigar Alcohol intake frequency: does not drink Cardiovascular Hx: HTN, CHF, Arrhythmias (afib, ), Cardiomyopathy and Other (ashd, aneurysm- thoracic, hld, LBBB) Musculoskeletal Hx: Arthritis (knees, thr right) and Other (sciatica) Blood Disorder Hx: Anemia and Hyperlipidemia GI Hx: Diverticulosis and Other (gerd, colon polyps, pancreatic mass) Hx: Kidney Disease (ckd 3, ) and Prostate (prostatitis) Neurological Hx: Aneurysm (thoracic) Cancer HX: No Psych. Illness/Depression: Yes (hx depression) Coding Level of Care Code Est Patient Level 1 Diagnoses Current use of anticoagulant therapy Z79.01 Results AMB INR Fingerstick AMB INR Fingerstick 3.5 Last Edit by Eunice Guzman RN on 07/24/25 08:36 MANUAL ENTRY Assessment & Plan Assessment & Plan (1) Current use of anticoagulant therapy: Code(s): Z79.01 - retirement (current) use of anticoagulants Category: Medical
[2025-07-24 12:07] LABS: Prothrombin Time Whole Bld POC 42.1 sec (11.1-13.5); ~PT, ~INR - Anti Coag Clinic 3.5 (0.9-1.1)
== END 2025-07-24 08:56 | disposition home or self-care (01) ==
LOC: HO.ACS 08:26
PROVIDERS: PCP Internal Medicine; Visit Provider Internal Medicine Medical Oncology
DX: Z79.01 Long term (current) use of anticoagulants (principal)

== ENCOUNTER → 2025-07-24 08:26 | Outpatient (BNVA) | payer MEDICARE, SELFPAY | PROVIDERS: PCP Internal Medicine; Visit Provider Internal Medicine Medical Oncology | DX: I48.91 Unspecified atrial fibrillation (principal); Z51.81 Encounter for therapeutic drug level monitoring; Z79.01 Long term (current) use of anticoagulants | CPT/HCPCS: 85610; 99211 ==

== ENCOUNTER 2025-07-31 08:17 | Outpatient (AMB) | payer MEDICARE, SELFPAY ==
[2025-07-31 08:33] LABS: Prothrombin Time Whole Bld POC 37.2 sec (11.1-13.5); ~PT, ~INR - Anti Coag Clinic 3.1 (0.9-1.1)
--- NOTE | 2025-07-31 08:39 | MHC.OFFVISCO ---
Intake Intake Visit Reasons: Anticoagulation Allergies No Known Allergies Allergy (Verified 07/31/25 08:27) Medication List - Last Reconciled 07/31/25 by Eunice Guzman RN acetaminophen 1,000 mg PO .q8 hours PRN aspirin 81 mg PO DAILY atorvastatin (Lipitor) 40 mg PO DAILY cholecalciferol (vitamin D3) 10 mcg PO DAILY docusate sodium 100 mg PO DAILY ferrous sulfate 325 mg PO DAILY furosemide (Lasix) 120 mg PO DAILY losartan 25 mg PO DAILY metoprolol succinate ER (Toprol XL) 200 mg PO DAILY omeprazole 40 mg PO DAILY polyethylene glycol 3350 (Miralax) 17 grams PO DAILY PRN sennosides (Senokot) 8.6 mg PO DAILY spironolactone 12.5 mg PO DAILY tamsulosin 0.4 mg PO DAILY warfarin 5 mg See Protocol PO DAILY Nursing Note INR: 3.1 OUT OF therapeutic range Medications and supplements reviewed * Pt has not been eating usual amt of greens or food because duaghter on special weight loss diet No changes in health, medications, or supplements, Denies any signs and symptoms of bleeding or bruising or clotting. Bleeding, bruising, clotting discussed Nutritional guidance given - eat 1 -2 servings of greens / week Dose: dose decreased last week to 4mg daily keep dose and add small amt of vit k foods F/U INR: 18 days 08/18/25 Patient verbalizes understanding of instructions given Anti-Coag Initial Assessment Social Hx Patient Tobacco Use Status: Former Tobacco user Tobacco use type: Cigarette and Cigar Alcohol intake frequency: does not drink Cardiovascular Hx: HTN, CHF, Arrhythmias (afib, ), Cardiomyopathy and Other (ashd, aneurysm- thoracic, hld, LBBB) Musculoskeletal Hx: Arthritis (knees, thr right) and Other (sciatica) Blood Disorder Hx: Anemia and Hyperlipidemia GI Hx: Diverticulosis and Other (gerd, colon polyps, pancreatic mass) Hx: Kidney Disease (ckd 3, ) and Prostate (prostatitis) Neurological Hx: Aneurysm (thoracic) Cancer HX: No Psych. Illness/Depression: Yes (hx depression) Coding Level of Care Code Est Patient Level 1 Diagnoses Current use of anticoagulant therapy Z79.01 Results AMB INR Fingerstick AMB INR Fingerstick 3.1 Last Edit by Eunice Guzman RN on 07/31/25 08:33 manual entry Assessment & Plan Assessment & Plan (1) Current use of anticoagulant therapy: Code(s): Z79.01 - alf (current) use of anticoagulants Category: Medical
== END 2025-07-31 08:43 | disposition home or self-care (01) ==
LOC: HO.ACS 08:17
PROVIDERS: PCP Internal Medicine; Visit Provider Internal Medicine Medical Oncology
DX: Z79.01 Long term (current) use of anticoagulants (principal)

== ENCOUNTER → 2025-07-31 08:17 | Outpatient (BNVA) | payer MEDICARE, SELFPAY | PROVIDERS: PCP Internal Medicine; Visit Provider Internal Medicine Medical Oncology | DX: Z79.01 Long term (current) use of anticoagulants (principal) | CPT/HCPCS: 85610; 99211 ==

== ENCOUNTER 2025-08-18 07:59 | Outpatient (AMB) | payer MEDICARE, SELFPAY ==
--- NOTE | 2025-08-18 08:20 | MHC.OFFVISCO ---
Intake Intake Visit Reasons: Anticoagulation Allergies No Known Allergies Allergy (Verified 08/18/25 08:05) Medication List - Last Reconciled 08/18/25 by Eunice Guzman RN acetaminophen 1,000 mg PO .q8 hours PRN aspirin 81 mg PO DAILY atorvastatin (Lipitor) 40 mg PO DAILY cholecalciferol (vitamin D3) 10 mcg PO DAILY docusate sodium 100 mg PO DAILY ferrous sulfate 325 mg PO DAILY furosemide (Lasix) 120 mg PO DAILY losartan 25 mg PO DAILY metoprolol succinate ER (Toprol XL) 200 mg PO DAILY omeprazole 40 mg PO DAILY polyethylene glycol 3350 (Miralax) 17 grams PO DAILY PRN sennosides (Senokot) 8.6 mg PO DAILY spironolactone 12.5 mg PO DAILY tamsulosin 0.4 mg PO DAILY warfarin 5 mg See Protocol PO DAILY Nursing Note INR: 3.2 JUST OUT therapeutic range- INR has been slightly over 3.0 x 4 weeks He has been eating less due to daughter being on a weight loss diet Medications and supplements reviewed No changes in health, medications, or supplements, Denies any signs and symptoms of bleeding or bruising or clotting. Bleeding, bruising, clotting discussed Nutritional guidance given - keep eating protein and vegetables Dose: decrease to 2mg x 1 day/ 4mg x 6days F/U INR: 2 weeks Patient verbalizes understanding of instructions given Anti-Coag Initial Assessment Social Hx Patient Tobacco Use Status: Former Tobacco user Tobacco use type: Cigarette and Cigar Alcohol intake frequency: does not drink Cardiovascular Hx: HTN, CHF, Arrhythmias (afib, ), Cardiomyopathy and Other (ashd, aneurysm- thoracic, hld, LBBB) Musculoskeletal Hx: Arthritis (knees, thr right) and Other (sciatica) Blood Disorder Hx: Anemia and Hyperlipidemia GI Hx: Diverticulosis and Other (gerd, colon polyps, pancreatic mass) Hx: Kidney Disease (ckd 3, ) and Prostate (prostatitis) Neurological Hx: Aneurysm (thoracic) Cancer HX: No Psych. Illness/Depression: Yes (hx depression) Coding Level of Care Code Est Patient Level 1 Diagnoses Current use of anticoagulant therapy Z79.01 Results AMB INR Fingerstick AMB INR Fingerstick 3.2 Last Edit by Eunice Guzman RN on 08/18/25 08:12 MANUAL ENTRY Assessment & Plan Assessment & Plan (1) Current use of anticoagulant therapy: Code(s): Z79.01 - USP (current) use of anticoagulants Category: Medical
[2025-08-18 09:22] LABS: Prothrombin Time Whole Bld POC 38.5 sec (11.1-13.5); ~PT, ~INR - Anti Coag Clinic 3.2 (0.9-1.1)
--- OUTSIDE RECORDS SUMMARY | 2025-08-18 09:25 | XMS_ITS | Clinical Summary ---
Author Organization [address] [place] [address] Address [address] [place] [address] Phone Care Team Providers Care Lead Javascript Engineer Name Role Phone Luisito Davenport MD Primary Care Provider [phone] Allergies No known active allergies Medications aspirin 81 mg EC tablet Take 81 mg by mouth daily. Active omeprazole (PriLOSEC) [address] capsule Take 1 Capsule by mouth daily. Active tamsulosin (FLOMAX) 0.4 mg 24 hr capsule Take 0.4 mg by mouth daily. Take 30 mins after same meal every day. Active warfarin (COUMADIN) 1 mg tablet Managed by [facility] coumadin [facility] Active losartan (COZAAR) 50 mg tablet Take 0.5 tablets (25 mg total) by mouth 1 (one) time each day. 90 tablet 1 5 Active docusate sodium (COLACE) 100 mg capsule [...] EVERY DAY 90 tablet 3 5 Active spironolactone (ALDACTONE) 25 mg tablet Take 0.5 tablets (12.5 mg total) by mouth 1 (one) time each day. 15 tablet 1 5 Active metoprolol succinate (TOPROL-XL) 200 mg 24 hr tablet TAKE 1 TABLET EVERY DAY 90 tablet 3 5 Active furosemide (LASIX) 40 mg tablet Take 2 tablets (80 mg total) by mouth 1 (one) time each day in the morning. And 1 tablet (40 MG) in then afternoon 5 Active furosemide (LASIX) 40 mg tablet Take by mouth. Take 3 tablets in the morning, take 2 tablets in the evening 08/05/20 Discontinue d(Discontin ued by another clinician) ferrous sulfate 325 mg (65 mg iron) EC tablet Take 1 tablet (325 mg total) by mouth 3 (three) times a day with meals. Do not crush, chew, or split. 08/05/20 25 Discontinue d(Duplicate order) Farxiga 10 mg tablet Take 1 tablet (10 mg total) by mouth 1 (one) time each day. 90 tablet 3 5 08/05/20 25 Discontinue d(Discontin ued by another clinician) furosemide (LASIX) 40 mg tablet Take 1 tablet (40 mg total) by mouth 2 (two) times a day. 60 tablet 1 5 08/05/20 25 Discontinue d(Reorder) Active Problems Problem Noted Date Diagnosed Date Nonischemic cardiomyopathy 01/09/2025 CAD (coronary artery disease) 11/08/2022 Overview (01/15/2025): - Mild nonobstructive CAD on cath 2007 -Nuclear stress test 08/2019 without evidence of ischemia or infarct, LVEF 50% Assessment & Plan (08/05/2025 8:03 AM EST): The patient has no concerning anginal symptoms to his current MET workload. He is active, though does not have a formal exercise program. Continue medical therapy with beta-anderson, ARB, aspirin and statin. Assessment & Plan (05/06/2025 12:24 PM EDT): [...] use HLD (hyperlipidemia) 11/08/2022 Assessment & Plan (08/05/2025 8:05 AM EST): Very well-controlled with the profile with nonobstructive CAD though vascular disease in the form of his aortopathy. Continue statin at current dose Assessment & Plan (05/06/2025 12:31 PM EDT): Well controlled lipid profile on current dose statin. Continue Assessment & Plan (02/05/2025 7:26 AM EDT): Well-controlled lipid profile on current dose statin. Continue Atrial fibrillation 08/18/2022 Overview (01/15/2025): - Unsuccessful cardioversion -Anticoagulated with warfarin -Heart rate supported by BiV pacemaker Assessment & Plan (08/05/2025 8:02 AM EST): The patient remains in persistent atrial fibrillation. He is chronically anticoagulated with warfarin. He has not had any bleeding issues. Continue high dosed beta-anderson therapy with biventricular pacing backup. Assessment & Plan (05/06/2025 12:23 PM EDT): [...] team for Watchman evaluation. Aortic aneurysm, thoracic 09/13/2020 Overview (08/05/2025): - Followed by Dr. Chavez - Declines further surveillance or intervention Assessment & Plan (08/05/2025 8:01 AM EST): The patient has elected to stop following his aortic aneurysm as he would never except an intervention. Dr. Chavez's office was notified last visit, and today the patient and his daughter state that Dr. Chavez's office called and agreed with this plan. Assessment & Plan (05/06/2025 12:19 PM EDT): [...] failure with p reserved ejection fraction (HFpEF) 09/13/2020 Overview (01/15/2025): - Recovered LVEF status post EXECUTIVE CREATIVE DIRECTOR-D -Most recent echocardiogram 12/2022 showing normal LV [...] has been cost prohibitive Assessment & Plan (08/05/2025 8:05 AM EST): The patient feels well and has not had any recent heart failure exacerbations. He has no breathlessness with his typical activities. Clinically, he appears euvolemic on exam. He had a slight downward trend in his thoracic impedance possibly suggesting some excess volume. However, his diuretic had just been down titrated by his glass loading equipment tender, and he was likely re-equilibrating to his new diuretic dose. Further, at that time, he had had some dietary sodium indiscretion. However, given that he had no central symptoms of congestion, we did not make any medication changes. He looks well today, and will not make any medication changes today either. Continue ongoing medical therapy with beta-anderson, ARB, current dose diuretic, and MRA. As stated previously, unfortunately, SGLT2's are cost prohibitive. Perhaps in the new year this can be revisited as more SGLT2s go generic. Assessment & Plan (05/06/2025 12:26 PM EDT): [...] his myopathy. Hypertension 09/13/2020 Assessment & Plan (08/05/2025 8:05 AM EST): Blood pressure somewhat soft but asymptomatic. Therefore continue beta-anderson, ARB, diuretic and MRA at current doses. He will notify me if he has any changes in his current condition Assessment & Plan (05/06/2025 12:30 PM EDT): [...] Encounters Date Type Department Care Team Description 08/05/2025 7:40 AM EST Office Visit [facility] [address] [facility] [address] [place] [address] Mesha Lima NP Aneurysm of ascending aorta without rupture (CMS/HCC V24) (Primary Dx); Longstanding persistent atrial fibrillation (CMS/HCC V24, CMS/HCC V28); Coronary artery disease involving [place] coronary artery of [place] heart without angina pectoris; Chronic heart failure with preserved ejection fraction (HFpEF) (CMS/HCC V24, CMS/HCC V28); Primary hypertension 07/03/2025 10:20 PM EST Ancillary Procedure [facility] [address] [place] [address] 07/01/2025 Telephone [facility] [address] [place] [address] Jair Craig MD 06/27/2025 Telephone [facility] [address] [place] [address] Mesha Lima NP 06/11/2025 9:25 AM EDT Ancillary Procedure [facility] - [address] [place] [address] 05/19/2025 7:30 PM EDT Ancillary Procedure [facility] - [address] [place] [address] from Last 3 Months Surgical History Surgery [...] Orientation Straight 05/07/2025 4: 36 PM EDT Last Filed Vital Signs Vital Sign Reading Time Taken Comments Blood Pressure 100/52 08/05/2025 7:32 AM EST Pulse 69 08/05/2025 7:32 AM EST Temperature - - Respiratory Rate - - Oxygen Saturation 98% 08/05/2025 7:32 AM EST Inhaled Oxygen Concentration - - Weight 92.6 kg (204 lb 3.2 oz) 08/05/2025 7:32 A M EST Height 175.3 cm (5' 9 ) 08/05/2025 7:32 AM EST Body Mass Index 30.16 08/05/2025 7:32 AM EST Plan of Treatment Upcoming Encounters Date Type Department Care Team (Late st Contact Info) Description 04/29/2026 8:00 AM EDT Ancillary Procedure [facility] [address] [facility] [address] [place] [address] Health Maintenance Due Date Last Done Comments [...] this topic Medical Devices Implanted Type Area Pelletizer Operator Device Identifier Shelf Expiration Date Model / Serial / Lot Abbt-Stju 3357-40c Unify Assura(Tm) [id number] Implanted:11/19 (Quantity not on file) Cardiac EXECUTIVE CREATIVE DIRECTOR-D ICD [facility] 3357-40C UNIFY ASSURA(TM) / [id number] / Abbt-Stju Unify Assura [id number] Implanted:11/19 (Quantity not on file) Cardiac EXECUTIVE CREATIVE DIRECTOR-D ICD [facility] UNIFY ASSURA [id number] / [id number] / Procedures Procedure Name Priority Date/Time Associated Diagnosis Comments CARDIAC DEVICE CHECK- REMOTE- MURJ Routine 07/03/2025 10:15 PM EST CARDIAC DEVICE CHECK- REMOTE- MURJ Routine 06/11/2025 9:21 AM EDT EXTERNAL CLINICAL LAB Routine 05/27/2025 3:06 PM EDT CARDIAC DEVICE CHECK- REMOTE- MURJ Routine 05/19/2025 7:26 PM EDT BASIC METABOLIC PANEL Routine 01/23/2025 7:16 AM EDT Chronic heart failure with preserved ejection fraction (HFpEF) (CMS/HCC V24, CMS/HCC V28) from Last 3 Months or Most Recently Relevant to Health Maintenance Results * Cardiac device check - Remote- MURJ (07/03/2025 10:15 PM EST) Only the most recent of3 resultswithin the time period is included. Date Time Interrogation Session [id number] CV DEVICE CHECK Type Interrogation Session Remote Scheduled CV DEVICE CHECK Implantable Pulse Generator Pelletizer Operator [employer] CV DEVICE CHECK Implantable Pulse Generator Type EXECUTIVE CREATIVE DIRECTOR-D CV DEVICE CHECK Implantable Pulse Generator Model 3357-40C Nikko Mcgee(TM) CV DEVICE CHECK Implantable Pulse Generator Serial Number [id number] CV DEVICE CHECK Implantable Pulse Generator Implant Date 20221215 CV DEVICE CHECK Battery Remaining Percentage 57.00 CV DEVICE CHECK Battery Remaining Longevity 42.0 CV DEVICE CHECK Battery Voltage 2.960 CV D EVICE CHECK Battery PREFORM MACHINE OPERATOR Trigger 2.590 CV DEVICE CHECK Battery Status Middle of Service CV DEVICE CHECK Capacitor Charge Time 8.300 CV DEVICE CHECK EXECUTIVE CREATIVE DIRECTOR Statistic EXECUTIVE CREATIVE DIRECTOR Percent Paced 99.00 CV DEVICE CHECK Atrial Tachy Statistic AT/AF Halfway Percent 1.00 CV DEVICE CHECK Lead Channel [...] CV DEVICE CHECK Ventricular chambers paced during EXECUTIVE CREATIVE DIRECTOR pacing. BiV CV DEVICE CHECK Bryce Setting Lower Rate Limit 70 CV DEVICE CHECK Bryce Setting AT Mode Switch Rate 180 CV DEVICE CHECK Bryce Setting Maximum Sensor Rate 110 CV DEVICE CHECK EXECUTIVE CREATIVE DIRECTOR LV-RV Delay 45 CV D EVICE CHECK [...] * Thoracic Impedance dropped below reference line. Jair Craig MD CV IMPLANTABLE CARDIAC DEVICE PROCEDURES Final Result * External clinical lab (05/27/2025 3:06 PM EDT) Historical Provider LAB BLOOD ORDERABLES Lisa l Result * (ABNORMAL) Basic metabolic panel (01/23/2025 [...] - 01/23/2025 11:06 PM EDT Performed at: - [facility] [address] [id number] Coverage Specialist: Joyce Cohen MD, Phone: [phone] us Mesha Clarence EEG TECHNOLOGIST LAB BLOOD ORDERABLES Final Resu lt [facility] 1 from Last 3 Months or Most Recently Relevant to Health Maintenance Insurance MEDICARE [facility] Advance Directives Documents on File Type Date Recorded Patient Android Architect Expl anation Health Care Decision (hx) 01/26/2016 AD BERNARD DIRECTIVE Health Care Decision (hx) 01/26/2016 AD BERNARD DIRECTIVE Health Care Decision (hx) 01/26/2016 AD BERNARD DIRECTIVE Health Care Decision (hx) 01/26/2016 AD BERNARD DIRECTIVE Health Care Decision (hx) 01/26/2016 AD BERNARD DIRECTIVE Health Care Decision (hx) 01/26/2016 AD BERNARD DIRECTIVE Care Teams Lead Javascript Engineer Relationship Specialty Start Date End Date Luisito Davenport MD [address] [place] [address] PCP - General Internal Medicine 05/29/12
== END 2025-08-18 08:24 | disposition home or self-care (01) ==
LOC: HO.ACS 07:59
PROVIDERS: PCP Internal Medicine; Visit Provider Internal Medicine Medical Oncology
DX: Z79.01 Long term (current) use of anticoagulants (principal)

== ENCOUNTER → 2025-08-18 07:59 | Outpatient (BNVA) | payer MEDICARE, SELFPAY | PROVIDERS: PCP Internal Medicine; Visit Provider Internal Medicine Medical Oncology | DX: I48.91 Unspecified atrial fibrillation (principal); Z51.81 Encounter for therapeutic drug level monitoring; Z79.01 Long term (current) use of anticoagulants | CPT/HCPCS: 85610; 99211 ==